=== PATIENT | female | born 1955 | race African-American/Black ===

== ENCOUNTER 2018-05-16 13:28 | Emergency (ER) | payer OTHER ==
[2018-05-16 13:37] VITALS: BP 136/75; PULSE 91; RESP 18; TEMP 98.5
--- NOTE | 2018-05-16 14:09 | ED ---
General Adult HPI - General Chief complaint: Recheck/Abnormal Lab/Rx Stated complaint: Weakness Time Seen by Provider: 05/16/18 13:39 Source: patient, RN notes reviewed, old records reviewed Mode of arrival: wheelchair Limitations: no limitations - History of Present Illness Initial comments: Chief complaint and history of present illness this is a 63-year-old black female who is here with a friend. The patient's friend conversion to come in because she noticed that she had a limited number tremor. While in emergency room the patient did demonstrate tremor when asked to hold her hand still. But when distracted and relaxed and she had no tremor. This was during Gen. conversation as well as during the neurological examination the patient's eyes were closed and her arms were extended outward to check for drift. The patient does report that she been the side effects to one of her medications which she' s been on for 2 years, not to do. Is having some tremor. She's also on Klonopin and Zoloft for bipolar disorder and schizophrenia. Patient denies any depression at this time. - Related Data Home Medications Medication Instructions Recorded Confirmed Sertraline [Zoloft] 100 mg PO DAILY 11/21/15 01/14/16 Previous Rx's Medication Instructions Recorded Artificial Tears-Hypromellose 2 drops BOTH EYES Q4HR PRN #1 09/10/15 [Artificial Tear Drops] bottle clonazePAM [KlonoPIN] 0.5 mg PO BID PRN #14 tab 09/10/15 Ibuprofen [Motrin] 600 mg PO Q6HR PRN #30 tab 11/22/15 Atorvastatin [Lipitor] 20 mg PO HS #30 tab 01/21/16 Lurasidone [Latuda] 40 mg PO BID-W/MEALS #60 tab 01/21/16 Montelukast [Singulair] 10 mg PO HS #30 tab 01/21/16 glipiZIDE XL [Glucotrol XL] 2.5 mg PO DAILY #30 tab.er.24 01/21/16 metFORMIN HCL [Glucophage] 500 mg PO BID-W/MEALS #60 tab 01/21/16 Allergies Allergy/AdvReac Type Severity Reaction Status Date / Time adhesive tape Allergy Rash/Hives Verified 05/16/18 13:37 almond oil Allergy Itching Verified 05/16/18 13:37 soy Allergy Nausea Verified 05/16/18 13:37 Sulfa (Sulfonamide Allergy Nausea & Verified 05/16/18 13:37 Antibiotics) Vomiting & Diarrhea black mold Allergy Confusion Uncoded 05/16/18 13:37 Review of Systems ROS Statement: Those systems with pertinent positive or pertinent negative responses have been documented in the HPI. Review of systems. Patient denies any headache no visual acuity changes mild discomfort to her throat which she ascribes to ALLERGIES. No runny nose. No chest pain shortness breath GI/ problems no neuro deficits. All systems are reviewed. Past medical problems significant for non-insulin diabetes mellitus, hyperlipidemia, depression, schizophrenia, enlarged thyroid without treatment. Surgeries none. Family history cancers including breast, leukemia. Patient has ALLERGIES to adhesive tape, almond oil, soy, sulfa drugs and black mold. Patient is a heavy smoker 2 packs per day. He spent over 3 minutes discussing ways to decrease her cigarette consumption. And advised to talk to her family doctor about help in stopping her cigarettes. Patient denies any alcohol use. ROS Other: All systems not noted in ROS Statement are negative. Past Medical History Past Medical History: Diabetes Mellitus, Hyperlipidemia, Skin Disorder Additional Past Medical History / Comment(s): Depression, Pt is unable to state rest of history, keloid removed from R posterior shoulder History of Any Multi-Drug Resistant Organisms: None Reported Additional Past Surgical History / Comment(s): Keloid removed from right shoulder Past Anesthesia/Blood Transfusion Reactions: No Reported Reaction Past Psychological History: Anxiety, Bipolar, Depression, Schizophrenia Smoking Status: Current every day smoker Past Alcohol Use History: None Reported Past Drug Use History: None Reported - Past Family History Mother Family Medical History: Cancer, Diabetes Mellitus Additional Family Medical History / Comment(s): Leukemia. Father History Unknown: Yes General Exam - General Exam Comments Initial Comments: General: The patient is awake and alert, in no distress, and does not appear acutely ill. Here because her friend noticed that she had some shaking. Patient reports she's had shaking on-call for 4 days. Patient read the side effects to one of her medications, what to do. Asians vital signs shows temperature 98.5 pulse 91 respiratory rate 18 pulse ox 90% on room air blood pressure 136/75. Eye: Pupils are equal, round and reactive to light, extra-ocular movements are intact ; there is normal conjunctiva bilaterally. No signs of icterus. Ears, nose, mouth and throat: There are moist mucous membranes and no oral lesions. Tonsils normal, Neck: The neck is supple, there is no tenderness, no anterior cervical lymphadenopathy , no JVD. Normal range of motion of neck. Cardiovascular: There is a regular rate and rhythm. No murmur, rub or gallop is appreciated. Respiratory: Lungs are clear to auscultation, respirations are non-labored, breath sounds are equal. No wheezes, stridor, rales, or rhonchi. Gastrointestinal: Soft, non-distended, non-tender abdomen without masses or organomegaly noted. There is no rebound or guarding present. No CVA tenderness. Bowel sounds are unremarkable. Back: There is no tenderness to palpation in the midline. There is no obvious deformity. No rashes noted. Musculoskeletal: Normal ROM, no tenderness, There is no pedal edema. There is no calf tenderness or swelling. Sensation intact. Pulses equal bilaterally 2+. Neurological: CN II-XII intact, There are no obvious motor or sensory deficits. Coordination appears grossly intact. Speech is normal. No focal or lateralizing findings. During the drift test with the patient's eyes closed her arms extended there was no tremor whatsoever. This was pointed out to the patient. Her friend who noticed some tremor at home also agreed that there was no tremor or shaking of her hands or feet. Skin: Skin is warm and dry and no rashes or lesions are noted. Psychiatric: Cooperative, appropriate mood & affect, normal judgment. History of schizophrenia and bipolar disorder. Limitations: no limitations Course Vital Signs 05/16/18 13:33 Temperature 98.5 F Pulse Rate 91 Respiratory 18 Rate Blood Pressure 136/75 O2 Sat by Pulse 98 Oximetry Medical Decision Making - Medical Decision Making Medical decision making; the patient is here because of some tremor. Which is not evident on the patient is distracted, resting or during her neurological examination. The patient is on several medications including Klonopin, Zoloft and left to do. The patient was advised to follow-up with her family physician tomorrow for review of her medications and possible side effects. Advised not to stop her medications cold turkey. Disposition Clinical Impression: Medication side effect Disposition: HOME SELF-CARE Condition: Fair Additional Instructions: : Follow-up with your prescribing physician for those medications discussed in detail while in emergency room. Continue with those medications down to have had a consultation. Stop smoking as soon as possible and discuss this with your doctor as well. Return emergency room as needed. Is patient prescribed a controlled substance at d/c from ED?: No Referrals: Burke Thurston MD [Primary Care Provider] - 1-2 days Time of Disposition: 14:09
== END 2018-05-16 14:15 | disposition home or self-care (01) ==
LOC: EC 13:28
DX: R25.1 Tremor, unspecified (principal); T42.4X5A Adverse effect of benzodiazepines, initial encounter; F31.9 Bipolar disorder, unspecified; F20.9 Schizophrenia, unspecified; F41.9 Anxiety disorder, unspecified; F17.200 Nicotine dependence, unspecified, uncomplicated; Z79.899 Other long term (current) drug therapy; Z88.2 Allergy status to sulfonamides; Z91.018 Allergy to other foods; Z91.048 Other nonmedicinal substance allergy status
CPT/HCPCS: 99285

== ENCOUNTER → 2018-08-03 | Outpatient (CLI) | payer MEDICARE, OTHER ==
--- NOTE | 2018-08-04 08:52 | MM ---
Reason for exam: screening (asymptomatic). Last mammogram was performed 3 years and 1 month ago. History: Patient is postmenopausal. Family history of breast cancer in aunt. Physical Findings: A clinical breast exam by your physician is recommended on an annual basis and results should be correlated with mammographic findings. MG 3D Screening Mammo W/Cad Bilateral CC and MLO view(s) were taken. Prior study comparison: June 29, 2015, bilateral MG screening mammo w CAD. February 15, 2013, CAD bilateral diagnostic mammogram. The breast tissue is heterogeneously dense. This may lower the sensitivity of mammography. There is no discrete abnormality. No significant changes when compared with prior studies. ASSESSMENT: Negative, BI-RAD 1 RECOMMENDATION: Routine screening mammogram of both breasts.
== END | disposition home or self-care (01) ==
LOC: RADMAMWWP 08:10
PROVIDERS: ATTEND Internal Medicine
DX: Z12.31 Encounter for screening mammogram for malignant neoplasm of breast (principal)
CPT/HCPCS: 77063; 77067

== ENCOUNTER 2019-03-28 14:32 | Observation (INO) | payer MEDICARE, OTHER ==
[2019-03-28] MEDS ORDERED: diphenhydrAMINE 50 MG/ML 1 ML VIAL IVP STA (15:41)
[2019-03-28] MEDS ORDERED: SODIUM CHLORIDE 0.9% 1,000 ML IV ONE (15:41)
--- NOTE | 2019-03-28 15:47 | ED ---
General Adult HPI - General Chief complaint: Weakness Stated complaint: body feels like its giving out Time Seen by Provider: 03/28/19 15:28 Source: patient Mode of arrival: wheelchair Limitations: no limitations - History of Present Illness Initial comments: Patient is a 64-year-old female presents with a chief complaint of weakness and falls. She states it is been going on for about 3 months. The patient has a history of diabetes, and psychiatric disease for which she was on latuda. the patient states that she was having side effects from that medication so she stopped taking it. she states that the symptoms have gotten worse since that time. she cannot identify an inciting incident, no aggravating or alleviating factors. timing is constant. She states that she is having difficulty now getting up and down her stairs and feels unsafe at home. - Related Data Home Medications Medication Instructions Recorded Confirmed Sertraline [Zoloft] 100 mg PO DAILY 11/21/15 03/28/19 Aspirin [Roane Aspirin EC] 81 mg PO DAILY 03/28/19 03/28/19 Loratadine [Claritin] 10 mg PO DAILY 03/28/19 03/28/19 QUEtiapine XR [SEROquel XR] 200 mg PO HS 03/28/19 03/28/19 Topiramate [Topamax] 50 mg PO BID 03/28/19 03/28/19 Trihexyphenidyl HCl 5 mg PO BID 03/28/19 03/28/19 Previous Rx's Medication Instructions Recorded Artificial Tears-Hypromellose 2 drops BOTH EYES Q4HR PRN #1 09/10/15 [Artificial Tear Drops] bottle Atorvastatin [Lipitor] 20 mg PO HS #30 tab 01/21/16 Montelukast [Singulair] 10 mg PO HS #30 tab 01/21/16 glipiZIDE XL [Glucotrol XL] 2.5 mg PO DAILY #30 tab.er.24 01/21/16 metFORMIN HCL [Glucophage] 500 mg PO BID-W/MEALS #60 tab 01/21/16 Allergies Allergy/AdvReac Type Severity Reaction Status Date / Time adhesive tape Allergy Rash/Hives Verified 03/28/19 14:56 almond oil Allergy Itching Verified 03/28/19 14:56 soy Allergy Nausea Verified 03/28/19 14:56 Sulfa (Sulfonamide Allergy Nausea & Verified 03/28/19 14:56 Antibiotics) Vomiting & Diarrhea black mold Allergy Confusion Uncoded 03/28/19 14:56 Review of Systems ROS Statement: Those systems with pertinent positive or pertinent negative responses have been documented in the HPI. ROS Other: All systems not noted in ROS Statement are negative. Neurological: Reports: weakness, other (abnormal movements. ) Past Medical History Past Medical History: Diabetes Mellitus, Hyperlipidemia, Skin Disorder Additional Past Medical History / Comment(s): Depression, Pt is unable to state rest of history, keloid removed from R posterior shoulder History of Any Multi-Drug Resistant Organisms: None Reported Past Surgical History: No Surgical Hx Reported Additional Past Surgical History / Comment(s): Keloid removed from right shoulder Past Anesthesia/Blood Transfusion Reactions: No Reported Reaction Past Psychological History: Anxiety, Bipolar, Depression, Schizophrenia Smoking Status: Current every day smoker Past Alcohol Use History: None Reported Past Drug Use History: None Reported - Past Family History Mother Family Medical History: Cancer, Diabetes Mellitus Additional Family Medical History / Comment(s): Leukemia. Father History Unknown: Yes General Exam Limitations: no limitations General appearance: alert, in no apparent distress Head exam: Present: atraumatic, normocephalic Eye exam: Present: normal appearance ENT exam: Present: normal exam Neck exam: Present: normal inspection Respiratory exam: Present: normal lung sounds bilaterally. Absent: respiratory distress, wheezes Cardiovascular Exam: Present: regular rate, normal rhythm GI/Abdominal exam: Present: soft. Absent: distended, tenderness Rectal exam: Present: deferred Extremities exam: Present: normal inspection Back exam: Present: normal inspection Neurological exam: Present: alert, oriented X3, other (patient has tardive dyskenesia with lip smacking, face twitching and upper extremity jerking. ) Psychiatric exam: Present: normal affect, normal mood Skin exam: Present: warm, dry, intact Course Vital Signs 03/28/19 14:52 Temperature 98.2 F Pulse Rate 111 H Respiratory 18 Rate Blood Pressure 125/78 O2 Sat by Pulse 100 Oximetry Medical Decision Making - Medical Decision Making Patient is a 64-year-old female presents with chief complaint weakness and falls. On initial evaluation, vitals stable, patient is in no acute distress. On exam, patient has moderate to severe tardive dyskinesia. Patient reevaluated patient was going computed tomography scan of the head without contrast. Patient given a dose Benadryl IV. At this time, the patient appears to be pretty debilitated. She feels unsafe at home. Patient will be admitted for further neurologic and psychiatric evaluation. 6:18 PM Lab evaluation of this patient is unremarkable. Computed tomography scan of the head shows no acute process. Case discussed with Dr. Carcamo who excessiveness with consult to neurology. Patient agreeable with care plan. - Lab Data Result diagrams: 03/28/19 15:57 03/28/19 15:57 Lab Results 03/28/19 03/28/19 Range/Units 15:57 15:57 WBC 7.2 (3.8-10.6) k/uL RBC 4.35 (3.80-5.40) m/uL Hgb 12.2 (11.4-16.0) gm/dL Hct 38.3 (34.0-46.0) % MCV 87.9 (80.0-100.0) fL MCH 28.1 (25.0-35.0) pg MCHC 32.0 (31.0-37.0) g/dL RDW 15.2 (11.5-15.5) % Plt Count 293 (150-450) k/uL Neutrophils % 69 % Lymphocytes % 20 % Monocytes % 6 % Eosinophils % 3 % Basophils % 0 % Neutrophils # 5.0 (1.3-7.7) k/uL Lymphocytes # 1.5 (1.0-4.8) k/uL Monocytes # 0.5 (0-1.0) k/uL Eosinophils # 0.2 (0-0.7) k/uL Basophils # 0.0 (0-0.2) k/uL Sodium 141 (137-145) mmol/L Potassium 4.2 (3.5-5.1) mmol/L Chloride 114 H (98-107) mmol/L Carbon Dioxide 19 L (22-30) mmol/L Anion Gap 8 mmol/L BUN 18 H (7-17) mg/dL Creatinine 0.78 (0.52-1.04) mg/dL Est GFR (CKD-EPI)AfAm >90 (>60 ml/min/1.73 sqM) Est GFR (CKD-EPI)NonAf 82 (>60 ml/min/1.73 sqM) Glucose 83 (74-99) mg/dL Calcium 9.5 (8.4-10.2) mg/dL Creatine Kinase 515 H (30-135) U/L Disposition Clinical Impression: Tardive dyskinesia, At high risk for falls Disposition: ADMITTED IP TO THIS HOSP Condition: Good Referrals: Burke Thurston MD [Primary Care Provider] - 1-2 days Decision to Admit Reason: Admit from [facility] - Out of Hospital Transfer - Req. Specs Out of Hospital Transfer - Requested Specifics: Other Non-Acute
[2019-03-28 16:46] LABS: Basophils % (A) 0 %; Eosinophils # (A) 0.2 k/uL (0-0.7); Eosinophils % (A) 3 %; HCT 38.3 % (34.0-46.0); HGB 12.2 gm/dL (11.4-16.0); Lymphocytes # (A) 1.5 k/uL (1.0-4.8); Lymphocytes % (A) 20 %; MCH 28.1 pg (25.0-35.0); MCV 87.9 fL (80.0-100.0); Mean Platelet Volume 6.6; Monocytes # (A) 0.5 k/uL (0-1.0); Monocytes % (A) 6 %; Neutrophils % (A) 69 %; Platelet Count 293 k/uL (150-450); RBC 4.35 m/uL (3.80-5.40); RDW 15.2 % (11.5-15.5); WBC 7.2 k/uL (3.8-10.6)
[2019-03-28 16:47] LABS: Anion Gap 8 mmol/L; Blood Urea Nitrogen 18 mg/dL (7-17); Calcium 9.5 mg/dL (8.4-10.2); Carbon Dioxide 19 mmol/L (22-30); Chloride 114 mmol/L (98-107); Creatine Kinase 515 U/L (30-135); Glucose 83 mg/dL (74-99); Potassium 4.2 mmol/L (3.5-5.1); Sodium 141 mmol/L (137-145)
--- NOTE | 2019-03-28 17:03 | CT ---
EXAMINATION TYPE: CT brain wo con DATE OF EXAM: 03/28/2019 COMPARISON: 05/01/2013 HISTORY: Weakness. CT DLP: 1090.4 mGycm Automated exposure control for dose reduction was used. FINDINGS: Ventricles of normal size. There is no mass effect nor midline shift. There is no sign of intracrania l hemorrhage. The calvarium is intact. There is no evidence of cerebral edema. IMPRESSION: HEAD CT SCAN APPEARS NORMAL FOR AGE. NO SIGNIFICANT CHANGE.
[2019-03-28] MEDS ORDERED: NALOXONE 0.4 MG/ML 1 ML VIAL IV PRN (18:13)
[2019-03-28] MEDS ORDERED: HYDROcodone/APAP 5-325MG 1 EACH TAB PO PRN (20:28)
[2019-03-28] MEDS ORDERED: LORazepam 1 MG TAB PO PRN (20:28)
[2019-03-28 21:39] LABS: Glucose,Whole Blood 109 mg/dL (75-99)
[2019-03-28] MEDS: NICOTINE 14MG/24HR PATCH TRANSDERM SCH (21:39)
[2019-03-28] MEDS: INSULIN ASPART (NovoLOG) 100 UNIT/ML VIAL SQ SCH (21:39)
[2019-03-28] MEDS: MONTELUKAST 10 MG TAB PO SCH (21:39)
[2019-03-28] MEDS: HEPARIN SODIUM,PORCINE 5,000 UNIT/ML 1 ML VIAL SQ SCH (21:39)
--- NOTE | 2019-03-28 22:08 | HP ---
HISTORY AND PHYSICAL CHIEF COMPLAINT: Weakness. HISTORY OF PRESENT ILLNESS: This 64-year-old woman with a past medical history of diabetes, hyperlipidemia, history of depression, history of anxiety, bipolar, schizophrenia, history of nicotine dependence, being followed by Dr. Thurston in the outpatient setting was also taking Latuda from the patient's psychiatrist, Dr. Carreno. The patient apparently complains of weakness and difficulty walking and Latuda was stopped about a month ago, but the weakness actually worsened. Patient also had involuntary movements of the face, grimacing, as well as minimally of the arms also patient. The patient came to [facility] and was admitted for further evaluation and treatment. Patient apparently had multiple falls also. The patient had extensive difficulty in walking without any support at this time. CK was elevated minimally at 515. The patient also complaining of some cough and sputum for some time with some diarrhea which stopped at this time. There is no history of fever, rigors or chills. No history of headache, loss of consciousness, seizures. PAST MEDICAL HISTORY: History of diabetes mellitus, history of hyperlipidemia, history of skin disorder, depression, history of anxiety, bipolar depression, schizophrenia. MEDICATIONS: Prior to admission home medications are: 1. Glucophage 500 mg p.o. b.i.d. with meals. 2. Glucotrol XL 2.5 mg daily. 3. Trihexyphenidyl 5 mg p.o. b.i.d. 4. Topamax 50 mg p.o. b.i.d. 5. Zoloft 100 mg p.o. daily. 6. Seroquel XR 200 mg q.h.s. 7. Singular 10 mg q.h.s. 8. Claritin 10 mg p.o. daily. 9. Lipitor 20 mg q.h.s. 10.Aspirin 81 mg p.o. daily. 11.Artificial Tears 2 drops q.4h p.r.n. ALLERGIES: ADHESIVE TAPES, ALMOND OIL, SOY, SULFA, BLACK MOLD. FAMILY HISTORY: History of cancer, diabetes, leukemia in the family. SOCIAL HISTORY: History of smoking. No history of alcohol intake. Patient smokes 2 packs per day. REVIEW OF SYSTEMS: ENT: Mentioned earlier. CARDIOVASCULAR SYSTEM: No angina or palpitations. RESPIRATORY: As mentioned earlier. GI no nausea or vomiting. GENITOURINARY: No dysuria. NERVOUS SYSTEM: Numbness as mentioned earlier. ALLERGIES/IMMUNOLOGY: No asthma or hayfever. MUSCULOSKELETAL: As mentioned earlier. HEMATOLOGY/ONCOLOGY: No history of anemia. ENDOCRINE: As mentioned earlier. CONSTITUTIONAL: As mentioned earlier. DERMATOLOGY: Negative. RHEUMATOLOGY: Negative. PSYCHIATRY: As mentioned earlier. PHYSICAL EXAMINATION: GENERAL: Alert and oriented x3. VITAL SIGNS: Pulse is 111, blood pressure 120/72, respiration 18, temperature 98.2. Pulse ox 100 percent on room air. HEENT is conjunctivae normal. Oral mucosa moist. The patient dysarthric. NECK is no jugular venous distention. No carotid bruit. No lymph node enlargement. Otherwise HEENT has some involuntary movements of the face with facial grimacing present. No nystagmus noted. CARDIOVASCULAR system: S1, S2 muffled. No S3, no S4. RESPIRATORY: Breath sounds diminished in the bases. A few rhonchi. No crackles. ABDOMEN: Soft, obese, nontender. No mass. LEGS: No edema. No swelling. NERVOUS SYSTEM: Higher functions as mentioned earlier. Moves all 4 limbs. Minimal diffuse weakness noted. Otherwise, no focal weakness noted. The tone is normal. The gait is ataxic. No sensory abnormalities are noted. SKIN: No ulcer, rash or bleeding. JOINTS: No active deforming arthropathy. LABS: CBC within normal limits. Sodium 140, potassium 4.2, CO2 is 19, BUN is 18, 515. ASSESSMENT: 1. Generalized tiredness and weakness possibly to rule out drug-induced myopathy. 2. Possible tardive dyskinesia. 3. Elevated CK with possible mild rhabdomyolysis. 4. Obesity with body mass of 34.5. 5. Diabetes mellitus type 2. 6. Hyperlipidemia. 7. Skin disorder. 8. History of depression. 9. History of keloid formation. 10.Anxiety, bipolar depression, schizophrenia. 11.History of continued ongoing nicotine dependence. RECOMMENDATIONS AND DISCUSSION: In this 64-year-old woman who presented with multiple complex medical issues, we will monitor the patient closely. Continue the current medications, management and symptomatic treatment. We will obtain neurology and Psychiatric evaluations. Monitor CK closely. PT/OT evaluation. The patient is at high risk of falls. I would also recommend possible ECF rehab in case the patient does not improve and not safe enough to be discharged home. Otherwise, we will monitor the patient closely. The patient will require more than 2 nights stay in the hospital to evaluate for possible drug induced myopathy or even polyneuropathy given there are no signs or symptoms in this point. The drug use tardive dyskinesia also a possibility, but however the fact that the symptoms are worsening after stopping Latuda is also . We will continue to monitor. Prognosis guarded. See orders for details. Further recommendations to follow. A copy of dictation being forward to Dr. Thurston who is the primary physician. ZI / FELIXN: [id number] / GEOFFREY
[2019-03-29 05:49] LABS: Appearance,Urine Clear (Clear); Bacteria,Urine Rare /hpf; Bilirubin,Urine Negative (Negative); Blood,Urine Negative (Negative); Color,Urine Yellow; Glucose,Urine (UA) Negative (Negative); Ketones,Urine 1+ (Negative); Leukocyte Esterase,Urine Moderate (Negative); Mucus,Urine Rare /hpf; Nitrite,Urine Negative (Negative); PH, Urine 5.5 (5.0-8.0); Protein,Urine Negative (Negative); RBC,Urine 1 /hpf (0-5); Specific Gravity,Urine 1.021 (1.001-1.035); Squamous Epithelial Cell,Urine 4 /hpf (0-4); Urobilinogen,Urine <2.0 mg/dL (<2.0); WBC,Urine 8 /hpf (0-5)
[2019-03-29 07:08] LABS: Glucose,Whole Blood 98 mg/dL (75-99)
[2019-03-29] MEDS: INSULIN ASPART (NovoLOG) 100 UNIT/ML VIAL SQ SCH ×4 (07:39→20:18)
[2019-03-29] MEDS: PANTOPRAZOLE 40 MG TABLET PO SCH (07:44)
[2019-03-29] MEDS: HEPARIN SODIUM,PORCINE 5,000 UNIT/ML 1 ML VIAL SQ SCH ×2 (07:44→21:13)
[2019-03-29] MEDS: metFORMIN 500 MG TAB PO SCH ×2 (07:44→17:39)
[2019-03-29] MEDS: ASPIRIN 81 MG PO SCH (07:44)
[2019-03-29] MEDS: NICOTINE 14MG/24HR PATCH TRANSDERM SCH (07:45)
[2019-03-29 10:00] LABS: Basophils % (A) 1 %; Eosinophils # (A) 0.1 k/uL (0-0.7); Eosinophils % (A) 3 %; HCT 39.9 % (34.0-46.0); HGB 12.6 gm/dL (11.4-16.0); Lymphocytes # (A) 0.8 k/uL (1.0-4.8); Lymphocytes % (A) 15 %; MCH 28.2 pg (25.0-35.0); MCHC 31.6 g/dL (31.0-37.0); MCV 89.3 fL (80.0-100.0); Mean Platelet Volume 6.1; Monocytes # (A) 0.4 k/uL (0-1.0); Monocytes % (A) 8 %; Neutrophils % (A) 73 %; Platelet Count 298 k/uL (150-450); RBC 4.47 m/uL (3.80-5.40); RDW 15.2 % (11.5-15.5); WBC 5.5 k/uL (3.8-10.6)
[2019-03-29 10:02] LABS: Potassium 4.1 mmol/L (3.5-5.1)
[2019-03-29 10:07] LABS: ALT 41 U/L (9-52); AST 87 U/L (14-36); Albumin 4.2 g/dL (3.5-5.0); Alkaline Phosphatase 62 U/L (38-126); Anion Gap 10 mmol/L; Blood Urea Nitrogen 13 mg/dL (7-17); C Reactive Protein <5.0 mg/L (<10.0); Calcium 9.8 mg/dL (8.4-10.2); Carbon Dioxide 20 mmol/L (22-30); Chloride 111 mmol/L (98-107); Creatine Kinase 696 U/L (30-135); Sodium 141 mmol/L (137-145); Total Bilirubin 0.4 mg/dL (0.2-1.3); Total Protein 6.7 g/dL (6.3-8.2)
[2019-03-29 10:37] LABS: Glucose 49 mg/dL (74-99)
[2019-03-29 10:44] LABS: Glucose,Whole Blood 83 mg/dL (75-99)
--- NOTE | 2019-03-29 11:50 | XR ---
EXAMINATION TYPE: XR chest 1V portable DATE OF EXAM: 03/29/2019 COMPARISON: Prior chest x-ray 02/24/2015 HISTORY: Congestive heart failure, weakness TECHNIQUE: Single frontal view of the chest is obtained. FINDINGS: There is no focal air space opacity, pleural effusion, or pneumothorax seen. The cardiac silhouette size is stable. The osseous structures are intact. IMPRESSION: No acute process.
[2019-03-29 11:53] LABS: Erythrocyte Sedimentation Rate 35 mm/hr (0-20)
--- NOTE | 2019-03-29 12:11 | PN ---
PROGRESS NOTE DATE OF SERVICE: 03/29/2019 This 64-year-old woman who was admitted with generalized tenderness and weakness also had possibly facial tardive dyskinesia also. The patient also complained of severe weakness. The patient is only able to walk with support, even then the unsteady gait is noted. Neurology evaluation in progress. CAT scan of the brain is noted. PAST MEDICAL HISTORY: Reviewed. REVIEW OF SYSTEMS: CARDIOVASCULAR SYSTEM: No angina. RESPIRATORY SYSTEM: As mentioned earlier. GI: No nausea. : Possibly UTI. NERVOUS SYSTEM: As mentioned earlier. MEDICATIONS: Current medications are reviewed and include: 1. Ecorse 5 mg q.6 p.r.n. 2. Aspirin 81 mg b.i.d. 3. Rocephin 1 gram daily. 4. Glucotrol 2.5 daily. 5. Heparin subcu b.i.d. 6. NovoLog scale. 7. Ativan 0.5 q.i.d. p.r.n. 8. Glucophage 500 mg b.i.d. 9. Singulair 10 mg q.h.s. 10.Narcan 0.2 q.2 p.r.n. 11.Habitrol 14. 12.Protonix 40 mg daily. PHYSICAL EXAMINATION: The patient is alert and oriented x3. Pulse 97, blood pressure 149/84, respiration 18, temperature 98.8, pulse ox 99% on room air. Patient is dysarthric. HEENT: Multiple abnormal movements of the eyelids, face. Facial grimacing present. CARDIOVASCULAR: S1, S2 muffled. No S3, no S4. RESPIRATION: Breath sounds diminished at the bases. A few scattered rhonchi. No crackles. ABDOMEN: Soft, obese, nontender. LEGS: No edema, no swelling. NERVOUS SYSTEM: Higher functions as mentioned earlier. Otherwise, moves all 4 limbs. Some abnormal movements, diffuse weakness, proximal muscle weakness. Gait dysfunction present. SKIN: No ulcer, rash or bleeding. LABS: WBC 5.5, hemoglobin 12.6. Sodium ntd_, potassium 4.1, CO2 is 20. Glucose is 49. UA noted. ASSESSMENT: 1. Generalized tiredness and weakness possibly drug induced myopathy. 2. Possible tardive dyskinesia. 3. Possible urinary tract infection. 4. Elevated CK with possible mild rhabdomyolysis. 5. Obesity with body mass index of 34.5. 6. Diabetes mellitus type 2, uncontrolled with hypoglycemia. 7. Hyperlipidemia. 8. Skin disorder. 9. History of depression. 10.History of keloid formation. 11.Anxiety, bipolar depression, schizophrenia. 12.History of continued ongoing nicotine dependence. RECOMMENDATIONS AND DISCUSSION: Recommend to continue current medication and continue monitoring and symptomatic treatment. Otherwise at this time I would initiate broad-spectrum IV antibiotics, obtain the cultures. Otherwise, I will hold the because of the hypoglycemia. Otherwise, I will continue with metformin and Accu-Cheks a.c. and and at bedtime and coverage also. The overall prognosis guarded because of multiple complex medical issues and we will await neurology consultation. PT, OT evaluation. The patient might require possibly ECF rehab also because of the high risk of fall and injury because of the patient's severe unsteadiness and other associated neurological problems at this time. This patient will definitely require more than 2 nights stay in the hospital for further evaluation and treatment of the above-mentioned medical problems to ensure patient's safety. ZI / MAYLIN: [id number] / GEOFFREY
[2019-03-29 12:37] LABS: Glucose,Whole Blood 89 mg/dL (75-99)
--- NOTE | 2019-03-29 14:20 | P.CN ---
Psychiatric Consult - . Consult date: 03/29/19 Consult:: 03/29/19 13:23 schizophrenia Assessment and Plan (1) Schizophrenia Narrative/Plan: Patient is a 64-year-old female presents with a chief complaint of weakness and falls. She states it is been going on for about 3 months. The patient has a history of diabetes, and psychiatric disease for which she was on latuda. the patient states that she was having side effects from that medication so she stopped taking it. she states that the symptoms have gotten worse since that time. she cannot identify an inciting incident, no aggravating or alleviating factors. timing is constant. She states that she is having difficulty now getting up and down her stairs and feels unsafe at home. - Related Data Home Medications Medication Instructions Recorded Confirmed Sertraline [Zoloft] 100 mg PO DAILY 11/21/15 03/28/19 Aspirin [[place] Aspirin EC] 81 mg PO DAILY 03/28/19 03/28/19 Loratadine [Claritin] 10 mg PO DAILY 03/28/19 03/28/19 QUEtiapine XR [SEROquel XR] 200 mg PO HS 03/28/19 03/28/19 Topiramate [Topamax] 50 mg PO BID 03/28/19 03/28/19 Trihexyphenidyl HCl 5 mg PO BID 03/28/19 03/28/19 Previous Rx's Medication Instructions Recorded Artificial Tears-Hypromellose 2 drops BOTH EYES Q4HR PRN #1 09/10/15 [Artificial Tear Drops] bottle Atorvastatin [Lipitor] 20 mg PO HS #30 tab 01/21/16 Montelukast [Singulair] 10 mg PO HS #30 tab 01/21/16 glipiZIDE XL [Glucotrol XL] 2.5 mg PO DAILY #30 tab.er.24 01/21/16 metFORMIN HCL [Glucophage] 500 mg PO BID-W/MEALS #60 tab 01/21/16 Allergies Allergy/AdvReac Type Severity Reaction Status Date / Time adhesive tape Allergy Rash/Hives Verified 03/28/19 14:56 almond oil Allergy Itching Verified 03/28/19 14:56 soy Allergy Nausea Verified 03/28/19 14:56 Sulfa (Sulfonamide Allergy Nausea & Verified 03/28/19 14:56 Antibiotics) Vomiting & Diarrhea black mold Allergy Confusion Uncoded 03/28/19 14:56 PAST PSYCHIATRIC HISTORY: Patient is well known to this mental health unit with multiple prior hospitalizations and the last in 2014. She is followed by [facility]. She complains that she had massive weight gain on some of the medications; but that she has not gained weight with Latuda. She is unable to recall the names of previous medications. FAMILY PSYCHIATRIC HISTORY: There is a history of psychiatric problems reported on the maternal side. PAST MEDICAL HISTORY: Patient is reported to be a type II diabetic. She has asthmatic. HOME MEDICATIONS: Please refer to medication reconciliation report. SUBSTANCE ABUSE HISTORY: Denies. FAMILY CHEMICAL DEPENDENCY HISTORY: Denies. SOCIAL HISTORY: Patient lives in her own home. 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 She is not . She states that she has 2 children. Past Medical History Past Medical History: Diabetes Mellitus, Hyperlipidemia, Skin Disorder Additional Past Medical History / Comment(s): Depression, Pt is unable to state rest of history, keloid removed from R posterior shoulder History of Any Multi-Drug Resistant Organisms: None Reported Past Surgical History: No Surgical Hx Reported Additional Past Surgical History / Comment(s): Keloid removed from right shoulder Past Anesthesia/Blood Transfusion Reactions: No Reported Reaction Past Psychological History: Anxiety, Bipolar, Depression, Schizophrenia Smoking Status: Current every day smoker Past Alcohol Use History: None Reported Past Drug Use History: None Reported - Past Family History Mother Family Medical History: Cancer, Diabetes Mellitus Additional Family Medical History / Comment(s): Leukemia. Father History Unknown: Yes Musculoskeletal Examination - Abnormal/Involuntary Movements: [ tremors, spasm, tics] Strength: [greater than antigravity (greater than/equal to 3/5) in all extremities, weakness:] Muscle Tone: [ dystonia Gait: [ in wheelchair, wide-based] Station: [unsteady, in wheelchair] Mental Status Examination - General Appearance: [ disheveled, casual, appears older than stated age Speech/Language: [ slow, hesitant, halting, monotone, soft,] Attitude/Behavior: [cooperative Mood: [, depressed, anxious, hopelessness Affect: [ flat, blunted constricted] Orientation: [time, person, place situation] Thought Content: [wnl, denies delusions, obsessions, phobias, other] Risk Factors: [Denies suicidal (ideations, plan), and/or Homicidal (ideations, plan), other] Perception: [ with hallucinations (auditory, visual, tactile), other] Thought Processes: [ concrete, circumstantial, tangential] Concentration/Attention Span: [ impaired] [Per observation and interview with the patient] Recent Memory: [wnl Remote Memory: [wnl] [past events, as related history] Intelligence: [below average] [based on history, based on vocabulary, syntax, grammar, and content] Judgement: [Fair] [per patient's behavior/history of present illness] Insight: [There] [understanding severity of illness/history of present illness] Psychiatric impression: Schizoaffective disorder unstable has been off psychiatric meds for several months with noticeable tic and extraparametal motor movement as noted above has her gait is wide-based needing a wheelchair her station is unsteady she has weakness and lower extremity and tremors and her upper extremity with a noticeable tic in her eyes. Psychiatric recommendation: When medically stable transfer to [address] [place] [address] [place] and she is willing to sign a formal voluntary for admission to stabilize her psychiatric medications. I notified the EPS nurse who will help him transition to the psychiatric unit from medical floor. Thank you for the consult Baldemar Grimm D.O. PhD Current Visit: Yes Status: Acute Priority: High Code(s): F20.9 - SCHIZOPHRENIA, UNSPECIFIED SNOMED Code(s): 47352744 Time with Patient: Greater than 30
--- NOTE | 2019-03-29 16:45 | P.CNNES ---
History of Present Illness Consult date: 03/29/19 Reason for Consult: Tardive dyskinesia History of Present Illness: Patient is a 64-year-old female, with psychiatric history, who states that she has been on Latuda the for about 6 years. About 2 months ago, she started noticing shakiness of her hands, some weakness in the legs and difficulty going upstairs. She stopped Latuda about 2 months ago. Patient states that afterwards her condition started getting worse, instead of getting better. She couldn't walk long distance. She felt as if she would fall, started falling into the [place]. It progressed to the point that she couldn't walk from one room to another not able to do stuff. In the last 1 week the symptoms got much worse particularly yesterday, therefore she decided come to the ER. It was also noticed by her friends that she has been having some facial twitching. Patient denies any focal symptoms. Patient has been on Artane 5 mg twice a day, Topamax 50 mg twice a day, sertraline 100 mg daily, Seroquel XR 200 mg at bedtime and Lipitor 20 mg besides her medication for diabetes. Patient's blood test shows normal CBC, ESR 35, normal sodium and potassium, renal functions. Glucose was low 49. AST mildly elevated 87, AST normal 41. CRP normal. CPK elevated 696. UA negative. Her last hemoglobin A1c is 6.2 on 03/26/2017. Patient had a computed tomography scan of head, which appears normal for age. Chest x-ray showed no acute process. Review of Systems Patient has generalized weakness, facial twitches, denies any chest pain sanjeev rtness of breath double vision, dysphagia, numbness tingling or weakness. Denies neck pain, all other review of systems unremarkable, although patient does have some psychiatric issues.. Past Medical History Past Medical History: Diabetes Mellitus, Hyperlipidemia, Skin Disorder Additional Past Medical History / Comment(s): Depression, Pt is unable to state rest of history, keloid removed from R posterior shoulder History of Any Multi-Drug Resistant Organisms: None Reported Past Surgical History: No Surgical Hx Reported Additional Past Surgical History / Comment(s): Keloid removed from right shoulder Past Anesthesia/Blood Transfusion Reactions: No Reported Reaction Past Psychological History: Anxiety, Bipolar, Depression, Schizophrenia Smoking Status: Current every day smoker Past Alcohol Use History: None Reported Past Drug Use History: None Reported - Past Family History Mother Family Medical History: Cancer, Diabetes Mellitus Additional Family Medical History / Comment(s): Leukemia. Father History Unknown: Yes Medications and Allergies Home Medications Medication Instructions Recorded Confirmed Type Artificial Tears-Hypromellose 2 drops BOTH EYES Q4HR PRN #1 09/10/15 03/28/19 Rx [Artificial Tear Drops] bottle Sertraline [Zoloft] 100 mg PO DAILY 11/21/15 03/28/19 History Atorvastatin [Lipitor] 20 mg PO HS #30 tab 01/21/16 03/28/19 Rx Montelukast [Singulair] 10 mg PO HS #30 tab 01/21/16 03/28/19 Rx glipiZIDE XL [Glucotrol XL] 2.5 mg PO DAILY #30 tab.er.24 01/21/16 03/28/19 Rx metFORMIN HCL [Glucophage] 500 mg PO BID-W/MEALS #60 tab 01/21/16 03/28/19 Rx Aspirin [[place] Aspirin EC] 81 mg PO DAILY 03/28/19 03/28/19 History Loratadine [Claritin] 10 mg PO DAILY 03/28/19 03/28/19 History QUEtiapine XR [SEROquel XR] 200 mg PO HS 03/28/19 03/28/19 History Topiramate [Topamax] 50 mg PO BID 03/28/19 03/28/19 History Trihexyphenidyl HCl 5 mg PO BID 03/28/19 03/28/19 History Allergies Allergy/AdvReac Type Severity Reaction Status Date / Time adhesive tape Allergy Rash/Hives Verified 03/28/19 14:56 almond oil Allergy Itching Verified 03/28/19 14:56 soy Allergy Nausea Verified 03/28/19 14:56 Sulfa (Sulfonamide Allergy Nausea & Verified 03/28/19 14:56 Antibiotics) Vomiting & Diarrhea black mold Allergy Confusion Uncoded 03/28/19 14:56 Physical Examination - Vital Signs Vital Signs: Vital Signs Temp Pulse Pulse Pulse Resp BP BP 03/29/19 12:30 99.0 F 89 18 03/29/19 05:29 98.8 F 97 18 03/28/19 20:32 98.0 F 93 18 129/68 05/20/19 19:11 78 18 120/78 BP Pulse Ox 03/29/19 12:30 144/71 98 03/29/19 05:29 149/84 99 03/28/19 20:32 97 03/28/19 19:11 98 Intake and Output 03/29/19 03/29/19 03/29/19 06:59 14:59 22:59 Intake Total 1000 Balance 1000 Intake: Oral 1000 Other: # Voids 3 3 On examination patient is an elderly Afro-Turkish female, in no distress. Her mental status, speech and language functions are normal. On cranial nerve examination her pupils are round and reactive to light, visual guajardo are full, face is symmetric and tongue protrudes the midline. On muscle strength testing there is no pronator drift and the strength is normal in arms and legs distally and proximally. Reflexes are symmetric, 2+ in the upper limbs, 2+ at the knees, 1 at the ankles and plantars downgoing. Tone and bulk of muscles normal. No tremors of the extremities. Patient is having frequent fascial muscular twitches almost like blepharospasm versus hemifacial spasms. However her face would twitch to the left side and then sometimes the right. Apparently the facial twitches were not present, while I was checking for pronator drift with eyes closed, or when she was performing [id number] testing. Results - Laboratory Findings CBC and BMP: 03/29/19 09:25 03/29/19 09:25 Abnormal Lab Findings: Abnormal Labs 03/28/19 03/28/19 03/29/19 15:57 21:37 05:21 Lymphocytes # ESR Chloride 114 H Carbon Dioxide 19 L BUN 18 H Glucose POC Glucose (mg/dL) 109 H AST Creatine Kinase 515 H Urine Ketones 1+ H Ur Leukocyte Esterase Moderate H Urine WBC 8 H Urine Bacteria Rare H Urine Mucus Rare H 03/29/19 03/29/19 09:25 09:25 Lymphocytes # 0.8 L ESR 35 H Chloride 111 H Carbon Dioxide 20 L BUN Glucose 49 L* POC Glucose (mg/dL) AST 87 H Creatine Kinase 696 H Urine Ketones Ur Leukocyte Esterase Urine WBC Urine Bacteria Urine Mucus Assessment and Plan Assessment: * Possible facial tics versus tardive dyskinesia versus blepharospasm * Generalized weakness, with elevated CPK, possible myopathy, unclear etiology. * Psychiatric disorder, schizoaffective disorder. * Diabetes Plan: * Recheck CPK periodically to assess for the trend. Will also check aldolase. * B12 folate, RPR, TSH, free T4 * May need EMG and nerve conduction of the lower extremities, if CPK continues to stay elevated. * Regarding movement disorder, agree with a trial of Cogentin. As the movement disorder started not too long ago, hopefully will resolve soon also. * PT OT evaluate gait. * We will follow clinically.
[2019-03-29 17:00] LABS: Glucose,Whole Blood 123 mg/dL (75-99)
[2019-03-29 20:16] LABS: Glucose,Whole Blood 101 mg/dL (75-99)
[2019-03-29] MEDS: MONTELUKAST 10 MG TAB PO SCH (21:13)
[2019-03-30 07:26] LABS: Glucose,Whole Blood 122 mg/dL (75-99)
[2019-03-30] MEDS: INSULIN ASPART (NovoLOG) 100 UNIT/ML VIAL SQ SCH ×4 (07:26→20:23)
[2019-03-30] MEDS: PANTOPRAZOLE 40 MG TABLET PO SCH (07:27)
[2019-03-30] MEDS: ASPIRIN 81 MG PO SCH (07:27)
[2019-03-30] MEDS: NICOTINE 14MG/24HR PATCH TRANSDERM SCH (07:27)
[2019-03-30] MEDS: HEPARIN SODIUM,PORCINE 5,000 UNIT/ML 1 ML VIAL SQ SCH ×2 (07:27→22:14)
[2019-03-30] MEDS: metFORMIN 500 MG TAB PO SCH ×2 (07:27→17:23)
[2019-03-30 09:32] LABS: Basophils % (A) 1 %; Eosinophils # (A) 0.1 k/uL (0-0.7); Eosinophils % (A) 1 %; HCT 41.1 % (34.0-46.0); HGB 13.1 gm/dL (11.4-16.0); Lymphocytes # (A) 1.3 k/uL (1.0-4.8); Lymphocytes % (A) 23 %; MCH 28.3 pg (25.0-35.0); MCHC 31.8 g/dL (31.0-37.0); MCV 88.9 fL (80.0-100.0); Mean Platelet Volume 6.8; Monocytes # (A) 0.5 k/uL (0-1.0); Monocytes % (A) 9 %; Neutrophils # (A) 3.5 k/uL (1.3-7.7); Neutrophils % (A) 64 %; Platelet Count 300 k/uL (150-450); RBC 4.62 m/uL (3.80-5.40); RDW 15.6 % (11.5-15.5); WBC 5.5 k/uL (3.8-10.6)
[2019-03-30 09:46] LABS: Anion Gap 9 mmol/L; Blood Urea Nitrogen 10 mg/dL (7-17); Calcium 9.7 mg/dL (8.4-10.2); Carbon Dioxide 21 mmol/L (22-30); Chloride 112 mmol/L (98-107); Creatine Kinase 609 U/L (30-135); Glucose 135 mg/dL (74-99); Potassium 4.4 mmol/L (3.5-5.1); Sodium 142 mmol/L (137-145)
[2019-03-30 12:10] LABS: Glucose,Whole Blood 107 mg/dL (75-99)
[2019-03-30 14:12] VITALS: BMI 34.5
--- NOTE | 2019-03-30 16:26 | P.PN ---
Subjective Progress Note Date: 03/30/19 Patient continues to have forceful eye closure, almost looking like blepharospasm. She sometimes have left hemifacial spasm. This has developed into "red eye"on the left side. Her mouth is not much twitching. Patient at present is taking [place] 5/325 as needed, aspirin 81 mg, Rocephin, insulin, Ativan, Glucophage, Singulair and Protonix. Patient's blood test shows normal CBC, Chem-7, CPK 609. ESR 35, CRP normal <5.0, B12 is low at 204, folic acid 9.4, TSH 1.8 which is normal. 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 - Labs CBC & Chem 7: 03/30/19 08:20 03/30/19 08:20 Labs: Abnormal Lab Results - Last 24 Hours (Table) 03/29/19 03/29/19 03/30/19 Range/Units 16:55 20:04 07:22 RDW (11.5-15.5) % Chloride (98-107) mmol/L Carbon Dioxide (22-30) mmol/L Glucose (74-99) mg/dL POC Glucose (mg/dL) 123 H 101 H 122 H (75-99) mg/dL Creatine Kinase (30-135) U/L 03/30/19 03/30/19 03/30/19 Range/Units 08:20 08:20 12:07 RDW 15.6 H (11.5-15.5) % Chloride 112 H (98-107) mmol/L Carbon Dioxide 21 L (22-30) mmol/L Glucose 135 H (74-99) mg/dL POC Glucose (mg/dL) 107 H (75-99) mg/dL Creatine Kinase 609 H (30-135) U/L Microbiology - Last 24 Hours (Table) 03/29/19 05:21 Urine Culture - Final Urine,Voided 03/29/19 10:42 Blood Culture - Preliminary Blood No Growth after 24 hours Assessment and Plan Assessment: * 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 * Psychiatric disorder, schizoaffective disorder. * B12 deficiency with levels 204. * Diabetes Plan: * Repeat CPK today still elevated 609. Continue to check CPK periodically to assess for the trend. Aldolase pending. * B12 low 204, we will start B12 replacement. Folate normal 9.4, RPR nonreac tive, TSH normal 1.8 * May need EMG and nerve conduction of the lower extremities, if CPK continues t o stay elevated. * Regarding movement disorder, patient at present has movement disorder more like blepharospasm. Usually Botox is indicated for blepharospasm/hemifacial spasm. Okay to give a trial of Cogentin. * PT OT evaluate gait. * We will follow clinically.
[2019-03-30] MEDS: CYANOCOBALAMIN 1,000 MCG/ML 1 ML VIAL IM SCH (17:19)
[2019-03-30 17:20] LABS: Glucose,Whole Blood 135 mg/dL (75-99)
[2019-03-30 20:12] LABS: Glucose,Whole Blood 106 mg/dL (75-99)
--- NOTE | 2019-03-30 20:16 | PN ---
PROGRESS NOTE DATE OF SERVICE: 03/30/2019 This 64-year-old woman who was admitted with generalized weakness and tiredness also had possibly low-grade myopathy. The patient also had multiple psychiatric abnormalities and is on multiple psych medications also. The possibility of possible blepharospasm is also being considered. Outpatient evaluation was recommended by Neurology, including EMG. Otherwise, Psychiatry has seen the patient and recommended that she be transferred to [facility] for continued monitoring and adjustments regarding anti-psychotic medications. PHYSICAL EXAMINATION: Alert and oriented x2. Pulse is 86, blood pressure 136/84, respiration 16, temperature 98.7, pulse ox 98% on room air. HEENT: External appearance of nose and ears normal. Oral cavity normal. Oral mucosa moist. NECK: No jugular venous distention. No carotid bruit. No lymph node enlargement. CARDIOVASCULAR SYSTEM: S1, S2 muffled. RESPIRATORY SYSTEM: Breath sounds diminished at the bases. No rhonchi. No crackles. ABDOMEN: Soft, non-tender. LEGS: No edema. No swelling. NERVOUS SYSTEM: Diffusely weak, especially proximal muscles, and abnormal movements as described previously, unchanged. LABS: WBC 5.5, hemoglobin 13.1. CK is 609, glucose 107 and 135. ASSESSMENT: 1. Generalized tiredness and weakness, possibly drug-induced myopathy. 2. Possible tardive dyskinesia or blepharospasm. 3. Possible urinary tract infection. 4. Elevated creatine kinase with possible mild rhabdomyolysis. 5. Obesity with body mass index of 34.5. 6. Diabetes mellitus, type 2, uncontrolled, with hypoglycemia. 7. Hyperlipidemia. 8. History of depression. 9. History of keloid formation. 10.Anxiety, bipolar depression, schizophrenia. 11.History of continued ongoing nicotine dependence. RECOMMENDATIONS AND DISCUSSION: I recommend to continue current management, continue with the monitoring, symptomatic treatment. Otherwise, as mentioned earlier, we will closely follow with Neurology. We will transfer the patient to Psychiatry once the patient is stabilized, probably within the next 24 hours. Guarded prognosis. Further recommendations to follow. MMODL / IJN: [id number] /
[2019-03-30] MEDS ORDERED: BENZTROPINE MESYLATE 1 MG TAB PO SCH (21:00)
[2019-03-30] MEDS: BENZTROPINE MESYLATE 0.5 MG TAB PO SCH (22:14)
[2019-03-30] MEDS: MONTELUKAST 10 MG TAB PO SCH (22:14)
[2019-03-31 07:11] LABS: Glucose,Whole Blood 137 mg/dL (75-99)
[2019-03-31] MEDS: INSULIN ASPART (NovoLOG) 100 UNIT/ML VIAL SQ SCH ×2 (07:21→12:52)
[2019-03-31] MEDS: NICOTINE 14MG/24HR PATCH TRANSDERM SCH (07:39)
[2019-03-31] MEDS: metFORMIN 500 MG TAB PO SCH (07:42)
[2019-03-31] MEDS: HEPARIN SODIUM,PORCINE 5,000 UNIT/ML 1 ML VIAL SQ SCH (07:42)
[2019-03-31] MEDS: ASPIRIN 81 MG PO SCH (07:43)
[2019-03-31] MEDS: PANTOPRAZOLE 40 MG TABLET PO SCH (07:43)
[2019-03-31] MEDS: BENZTROPINE MESYLATE 0.5 MG TAB PO SCH (07:45)
[2019-03-31] MEDS: CYANOCOBALAMIN 1,000 MCG/ML 1 ML VIAL IM SCH (07:45)
[2019-03-31 10:03] LABS: Basophils % (A) 1 %; Eosinophils # (A) 0.1 k/uL (0-0.7); Eosinophils % (A) 2 %; HCT 40.5 % (34.0-46.0); HGB 12.8 gm/dL (11.4-16.0); Lymphocytes # (A) 1.3 k/uL (1.0-4.8); Lymphocytes % (A) 22 %; MCH 28.1 pg (25.0-35.0); MCHC 31.7 g/dL (31.0-37.0); MCV 88.9 fL (80.0-100.0); Mean Platelet Volume 6.1; Monocytes # (A) 0.5 k/uL (0-1.0); Monocytes % (A) 9 %; Neutrophils # (A) 3.6 k/uL (1.3-7.7); Neutrophils % (A) 64 %; Platelet Count 293 k/uL (150-450); RBC 4.56 m/uL (3.80-5.40); RDW 15.2 % (11.5-15.5); WBC 5.7 k/uL (3.8-10.6)
[2019-03-31 10:16] LABS: Anion Gap 10 mmol/L; Blood Urea Nitrogen 10 mg/dL (7-17); Calcium 9.5 mg/dL (8.4-10.2); Carbon Dioxide 19 mmol/L (22-30); Chloride 113 mmol/L (98-107); Creatine Kinase 472 U/L (30-135); Glucose 92 mg/dL (74-99); Potassium 4.1 mmol/L (3.5-5.1); Sodium 142 mmol/L (137-145)
--- NOTE | 2019-03-31 10:43 | P.DS ---
Providers Date of admission: 03/29/19 10:38 Attending physician: Keke Carcamo Consults: 03/28/19 18:15 Consult Physician Routine Consulting Provider: Nina Patterson Consult Reason/Comments: tardive dyskenesia Do you want consulting provider notified?: Yes 03/28/19 20:37 Consult Physician Routine Consulting Provider: Baldemar Grimm Consult Reason/Comments: schizophrenia Do you want consulting provider notified?: Already Contacted Primary care physician: Bertrand Turk [facility] Course: Final diagnosis Generalized tenderness weakness possibly myopathy possibly drug-induced. Possible tardive dyskinesia or blepharospasm UTI present on admission improved Admitted with a creatinine kinase with a possible mild rhabdomyolysis Obesity body mass in this of 34.5 Diabetes mellitus type II uncontrolled with hypoglycemia Hyperlipidemia. History of depression. History of for keloid formation. Anxiety bipolar depression schizophrenia. History of continue ongoing nicotine dependence Discharge disposition. The patient be discharged in a stable condition with guarded prognosis. Total time taken 35 minutes. History of present illness this 64 woman with a past medical history multiple medical was admitted with abnormal movements and weakness falls and multiple other neurological abnormalities. Tardive dyskinesia possible myopathy possible rhabdomyolysis were suspected. Patient was treated conservatively. Patient was also given antibiotics for presumed UTI. Patient proved significantly. All the psych medication is stopped. Neurology saw the patient. Psychiatric also saw the patient. Recommended inpatient psych eval issue for further continuation and the adjustment of the medications. On exam vitals are stable. Cardio S1-S2 normal. Respirator system no rhonchi. abdomen soft nontender nervous system mild weakness. Patient be transferred in a stable condition with guarded prognosis for psych floor. Please refer to medication reconciliation sheet for list of medications. Patient Condition at Discharge: Good Plan - Discharge Summary New Discharge Prescriptions: New LORazepam [Ativan] 0.5 mg PO Q8HR PRN tab PRN Reason: Anxiety Cefuroxime Axetil [Ceftin] 500 mg PO BID 3 Days #6 tab Benztropine Mesylate [Cogentin] 0.5 mg PO BID tab Nicotine 14Mg/24Hr Patch [Habitrol] 1 patch TRANSDERM DAILY patch INSULIN ASPART (NovoLOG) [NovoLOG (formulary)] 0 unit SQ ACHS vial Continue glipiZIDE XL [Glucotrol XL] 2.5 mg PO DAILY #30 tab.er.24 metFORMIN HCL [Glucophage] 500 mg PO BID-W/MEALS #60 tab Montelukast [Singulair] 10 mg PO HS #30 tab Loratadine [Claritin] 10 mg PO DAILY Aspirin [[place]va Aspirin EC] 81 mg PO DAILY Discontinued Artificial Tears-Hypromellose [Artificial Tear Drops] 2 drops BOTH EYES Q4HR PRN #1 bottle PRN Reason: dry eyes Sertraline [Zoloft] 100 mg PO DAILY Atorvastatin [Lipitor] 20 mg PO HS #30 tab QUEtiapine XR [SEROquel XR] 200 mg PO HS Trihexyphenidyl HCl 5 mg PO BID Topiramate [Topamax] 50 mg PO BID Discharge Medication List Montelukast [Singulair] 10 mg PO HS #30 tab 01/21/16 [Rx] glipiZIDE XL [Glucotrol XL] 2.5 mg PO DAILY #30 tab.er.24 01/21/16 [Rx] metFORMIN HCL [Glucophage] 500 mg PO BID-W/MEALS #60 tab 01/21/16 [Rx] Aspirin [Ava Aspirin EC] 81 mg PO DAILY 03/28/19 [History] Loratadine [Claritin] 10 mg PO DAILY 03/28/19 [History] Benztropine Mesylate [Cogentin] 0.5 mg PO BID tab 03/31/19 [Rx] Cefuroxime Axetil [Ceftin] 500 mg PO BID 3 Days #6 tab 03/31/19 [Rx] INSULIN ASPART (NovoLOG) [NovoLOG (formulary)] 0 unit SQ ACHS vial 03/31/19 [Rx] LORazepam [Ativan] 0.5 mg PO Q8HR PRN tab 03/31/19 [Rx] Nicotine 14Mg/24Hr Patch [Habitrol] 1 patch TRANSDERM DAILY patch 03/31/19 [Rx] Follow up Appointment(s)/Referral(s): Burke Thurston MD [Primary Care Provider] - 1-2 days Activity/Diet/Wound Care/Special Instructions: Diet cardiac Activity Limited follow-up Follow-up with the neurologist advised Follow-up with the psychiatrist as advised Medication adjustment for psychiatric medications per psych.
[2019-03-31 11:37] LABS: Glucose,Whole Blood 108 mg/dL (75-99)
[2019-03-31 14:20] VITALS: BP 121/69; PULSE 93; RESP 16; TEMP 98
== END 2019-03-31 15:14 ==
LOC: EC 14:32 → INTOOBSV 18:14 → 4MS4W 18:14 → INTOOBSV 03-29 10:38 → OBSVTOIN 03-29 10:38 → UNDODISIN 03-31 15:14
PROVIDERS: ADMIT Internal Medicine; ATTEND Internal Medicine
DX: R53.1 Weakness (principal); G25.9 Extrapyramidal and movement disorder, unspecified; F95.9 Tic disorder, unspecified; R26.9 Unspecified abnormalities of gait and mobility; N39.0 Urinary tract infection, site not specified; E11.649 Type 2 diabetes mellitus with hypoglycemia without coma; E53.8 Deficiency of other specified B group vitamins; F31.9 Bipolar disorder, unspecified; F25.9 Schizoaffective disorder, unspecified; F41.9 Anxiety disorder, unspecified; R47.1 Dysarthria and anarthria; R74.8 Abnormal levels of other serum enzymes; E78.5 Hyperlipidemia, unspecified; F17.210 Nicotine dependence, cigarettes, uncomplicated; L98.9 Disorder of the skin and subcutaneous tissue, unspecified; E66.9 Obesity, unspecified; Z68.34 Body mass index [BMI] 34.0-34.9, adult; Z79.84 Long term (current) use of oral hypoglycemic drugs; Z79.82 Long term (current) use of aspirin; Z79.899 Other long term (current) drug therapy; Z88.2 Allergy status to sulfonamides; Z91.018 Allergy to other foods; Z91.048 Other nonmedicinal substance allergy status; Z87.2 Personal history of diseases of the skin and subcutaneous tissue; Z91.81 History of falling; Z80.6 Family history of leukemia; Z83.3 Family history of diabetes mellitus; Z91.14 Patient's other noncompliance with medication regimen; Z80.9 Family history of malignant neoplasm, unspecified
CPT/HCPCS: 96365; 96366 ×2; 96372 ×4; 96361; 96375; 99285; 36415; 97116 ×2; 97163; 97535; 97167; 80053; 80048 ×3; 85652; 84443; 82607; 82085; 82550 ×4; 82746; 85025 ×4; 86140; 81001; 87040; 86780; 87086; 87502; 71045; 70450; G0378 ×4; J1200; J3420 ×2; J1644 ×4; J0696 ×3; 96374

== ENCOUNTER 2019-03-31 15:00 | Inpatient (IN) | payer MEDICARE ==
[2019-03-31] MEDS ORDERED: MAG HYDROX/AL HYDROX/SIMETH 30 ML CUP PO PRN (16:02)
[2019-03-31] MEDS ORDERED: MAGNESIUM HYDROXIDE 2,400 MG/10 ML CUP PO PRN (16:02)
[2019-03-31] MEDS ORDERED: ACETAMINOPHEN TAB 325 MG TAB PO PRN (16:02)
[2019-03-31] MEDS ORDERED: LORazepam 0.5 MG TAB PO PRN (16:10)
[2019-03-31 16:18] VITALS: BMI 34.5
[2019-03-31 17:28] LABS: Glucose,Whole Blood 112 mg/dL (75-99)
[2019-03-31] MEDS: INSULIN ASPART (NovoLOG) 100 UNIT/ML VIAL SQ SCH ×2 (17:54→20:29)
[2019-03-31] MEDS: metFORMIN 500 MG TAB PO SCH (17:55)
[2019-03-31 20:17] LABS: Glucose,Whole Blood 119 mg/dL (75-99)
[2019-03-31] MEDS: CEFDINIR 300 MG CAP PO SCH (20:30)
[2019-03-31] MEDS: BENZTROPINE MESYLATE 0.5 MG TAB PO SCH (20:30)
[2019-04-01 06:39] LABS: Glucose,Whole Blood 135 mg/dL (75-99)
[2019-04-01] MEDS: BENZTROPINE MESYLATE 0.5 MG TAB PO SCH (08:57)
[2019-04-01] MEDS: INSULIN ASPART (NovoLOG) 100 UNIT/ML VIAL SQ SCH ×4 (08:58→21:19)
[2019-04-01] MEDS: LORATADINE 10 MG TAB PO SCH (08:58)
[2019-04-01] MEDS: metFORMIN 500 MG TAB PO SCH ×2 (08:58→17:58)
[2019-04-01] MEDS: ASPIRIN 81 MG PO SCH (08:58)
[2019-04-01] MEDS: CEFDINIR 300 MG CAP PO SCH ×2 (08:58→21:20)
[2019-04-01] MEDS: NICOTINE 14MG/24HR PATCH TRANSDERM SCH (09:45)
[2019-04-01 12:27] LABS: Glucose,Whole Blood 91 mg/dL (75-99)
[2019-04-01 13:48] LABS: Basophils % (A) 0 %; Eosinophils # (A) 0.1 k/uL (0-0.7); Eosinophils % (A) 1 %; HCT 42.3 % (34.0-46.0); HGB 13.5 gm/dL (11.4-16.0); Lymphocytes # (A) 1.7 k/uL (1.0-4.8); Lymphocytes % (A) 25 %; MCH 28.1 pg (25.0-35.0); MCHC 31.9 g/dL (31.0-37.0); MCV 88.2 fL (80.0-100.0); Mean Platelet Volume 6.6; Monocytes # (A) 0.7 k/uL (0-1.0); Monocytes % (A) 10 %; Neutrophils # (A) 4.2 k/uL (1.3-7.7); Neutrophils % (A) 61 %; Platelet Count 297 k/uL (150-450); RBC 4.79 m/uL (3.80-5.40); RDW 15.4 % (11.5-15.5); WBC 6.8 k/uL (3.8-10.6)
[2019-04-01 18:09] LABS: Glucose,Whole Blood 101 mg/dL (75-99)
[2019-04-01 19:52] LABS: Folate, Serum 10.4 ng/mL; Iron Saturation 11.2 (12.00-45.00)
[2019-04-01 19:55] LABS: Glucose,Whole Blood 106 mg/dL (75-99)
[2019-04-01] MEDS: BENZTROPINE MESYLATE 1 MG TAB PO SCH (21:22)
--- NOTE | 2019-04-01 23:19 | HP ---
HISTORY AND PHYSICAL DATE OF SERVICE: 04/01/2019. IDENTIFYING DATA: The patient is a 64-year-old female. She lives in her own home. She was admitted in transfer from the medical floor. CHIEF COMPLAINT: The patient had weakness and possible drug-induced myopathy. She has a diagnosis of schizophrenia. HISTORY OF PRESENT ILLNESS: The patient was admitted to the medical floor for weakness and difficulty walking on the . She had been taking Latuda as her primary psychotropic medication. She is followed by Dr. Nguyen. Her Latuda was stopped 3 months ago due to weakness and problems she was having with movement. She said that after the Latuda was stopped her movement problems got progressively worse. She was also noted to have involuntary movements of the face with grimacing. She was seen on the medical floor and consultation by Dr. Grimm who diagnosed schizoaffective disorder order that was unstable and that she was having noticeable tics and extrapyramidal motor movement. The patient has had a number of psychiatric hospitalizations. Her last hospitalization in this facility was January 14, 2016. At that time, she had gone off her medications and developed bizarre behavior, agitation, delusions and homicidal thoughts. She was diagnosed with schizophrenia with acute exacerbation. She was discharged on Latuda 40 mg twice a day, Zoloft 100 mg a day and Klonopin 0.5 mg twice a day. The patient stated that she had been on Latuda for about 5 to 6 years. She said it was working well for her. She noted a history of what she identified as "psychotic breaks." She acknowledged that she would have situations where she would become very delusional. She said much of the time she was not fully aware of what was going on in those episodes. She said her first psychotic break was at age 52, though she also indicated that she had periods of strange and uncontrolled thinking going back to much young younger. She said she did not recall when she was younger that she actually had any psychotic breaks. Her last psychiatric hospitalization was 2 years ago as noted above. She says that she had been worried about side effects relating to Latuda. She said that she had read concerns about movement disorder and that she felt that she was experiencing abnormal movements. As such, she apparently had talked with Dr. Nguyen and there was an agreement to take her off Latuda which occurred about 3 months ago. She said after that, movements got dramatically worse for her. She said more recently she was having problems walking and especially going up stairs. She also acknowledged that she had abnormal facial movements. She also said that she did recognize that she was having in the abnormal tongue movements. She described shaking and tremors, especially in her legs. She said the movements were making it so that she could not go out shopping and doing normal activities. She reports that she has been sleeping fair to poor. She says she wakes frequently at night. She says that it has been a long-term problem for her. She has loss of motivation and energy. She was vague about whether she is having any hallucinations presently. She did not identify any clear flashbacks or posttraumatic issues. She reported no significant problems with panic, though did report anxiety on and off. Current psychotropic medications limited to Cogentin 0.5 mg twice a day and Ativan 0.5 mg p.r.n. When I asked the patient about her mood, she said she was not depressed, though she was just very bothered by the movement she was having. She is admitted for further evaluation. SUBSTANCE USE HISTORY: None reported by patient. MEDICAL HISTORY AND REVIEW OF SYSTEMS: As per medical consultation. FAMILY AND SOCIAL HISTORY: Patient lives at home with her son who is in his mid 30s. Has a daughter in her mid 30s, who lives in the [place] area. 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 She apparently is retired because of disability. MENTAL STATUS EXAM: Patient was in her room sitting in a wheelchair. She gave fair eye contact. It was noted that she had her head somewhat cocked to one side and had her hand up toward her face. She appeared to be blinking her eyes quite in a pronounced manner and fairly persistently she would move her head about. She seemed to put her hand up over her face, in part to not expose her movements. She did less of that as the interview went on. She answered questions with brief responses. Her thoughts were clear, coherent, and goal directed. Her affect was blunted. Her mood quiet. She did not appear to be significantly down or distressed, though distressed relating to her movements. There was no indication of thought disorder. Cognition was clear. She did make an effort to answer formal cognitive questions, though she provided a coherent history with accurate facts. ASSESSMENT: This 64-year-old female is diagnosed with schizophrenia. She has been having significant movement disorder which may meet criteria for tardive dyskinesia. Her history of having some movements on Latuda and then having exacerbation of movements off Latuda would be further suggestive of tardive dyskinesia. She has had recurrent psychotic breaks over the years where she has become very delusional and disorganized in her function, not clear at this time if she is showing psychotic symptoms or mood disorder. Strengths include the patient's apparent understanding of relevant psychiatric issues. Weaknesses include her chronic thought disorder. DIAGNOSIS: 1. Schizophrenia. 2. Movement disorder, rule out tardive dyskinesia versus dystonia. 3. Generalized weakness. 4. Elevated CK with possible mild rhabdomyolysis. 5. Obesity. 6. Diabetes mellitus type 2. 7. Hyperlipidemia. 8. Skin disorder. 9. History of depression. 10.History of keloid formation. 11.Nicotine dependence. RECOMMENDATIONS: Patient will be admitted for comprehensive medical psychiatric and psychosocial evaluation. Will engage the patient in individual and group therapeutic activities. I will continue the patient on Cogentin and increase her dose to 1 mg 3 times a day. The patient may be a candidate for clozapine therapy, both to address her underlying thought disorder as well as possible tardive dyskinesia. We will need to get further input from Dr. Nguyen. We will focus on stabilization and discharge planning. MMJUAN RAMON / MAYLIN: [id number] /
[2019-04-02 06:44] LABS: Glucose,Whole Blood 116 mg/dL (75-99)
[2019-04-02] MEDS: CEFDINIR 300 MG CAP PO SCH ×2 (08:44→22:09)
[2019-04-02] MEDS: ASPIRIN 81 MG PO SCH (08:45)
[2019-04-02] MEDS: metFORMIN 500 MG TAB PO SCH ×2 (08:45→17:43)
[2019-04-02] MEDS: BENZTROPINE MESYLATE 1 MG TAB PO SCH ×3 (08:45→22:37)
[2019-04-02] MEDS: LORATADINE 10 MG TAB PO SCH (08:45)
[2019-04-02] MEDS: INSULIN ASPART (NovoLOG) 100 UNIT/ML VIAL SQ SCH ×4 (09:13→20:11)
[2019-04-02] MEDS: DOCUSATE 100 MG CAP PO SCH (09:14)
[2019-04-02] MEDS: FERROUS SULFATE 325 MG TAB PO SCH (09:14)
[2019-04-02] MEDS: NICOTINE 14MG/24HR PATCH TRANSDERM SCH (09:33)
[2019-04-02 12:18] LABS: Glucose,Whole Blood 45 mg/dL (75-99)
[2019-04-02 12:46] LABS: Glucose,Whole Blood 80 mg/dL (75-99)
[2019-04-02] MEDS ORDERED: cloZAPine 25 MG TAB PO ONE (16:30)
[2019-04-02 17:51] LABS: Glucose,Whole Blood 97 mg/dL (75-99)
[2019-04-02 20:11] LABS: Glucose,Whole Blood 115 mg/dL (75-99)
--- NOTE | 2019-04-02 20:45 | PN ---
PROGRESS NOTE DATE OF SERVICE : 04/02/2019 . CHIEF COMPLAINT: The patient had weakness and possible drug induced myopathy. She has a diagnosis of schizophrenia. INTERVAL HISTORY: The patient has been doing fair. She had a quiet evening last night. She does come out some. She will interact a little with others. Mostly she will wander about the unit some. She slept fairly well last night. Today she has been up. She says she is feeling a little better today compared to yesterday. On the other hand movement gil, she says that her movements are just as pronounced if not a little worse. She says that overall her mood is fairly quiet. She has not noted any problems with hallucinations or difficulties in her thinking. She acknowledges that she has had significant problems with psychotic episodes. She does feel that the medicine she had been on were helpful. When we reviewed the issue of her going off the Latuda, and exactly at what point she was having problems, she was somewhat unclear about details of that. She says that Dr. Carreno was aware that she had some movement issues, though she said she was not clear whether or not he thought she had a specific movement disorder. She does not believe that he actually saw her during the more recent period when she has had a significant progression of issues in this regard. She continues to have weakness in her legs along with tremors and abnormal movements in her face. She tolerates her psychotropic medications. With increasing her Cogentin, she has not noticed any improvement as stated above. MENTAL STATUS: Patient gave fair eye contact. Psychomotor activity was a little restless. She answered questions with brief responses. Her thoughts were clear. Her affect was constricted. Her mood was quiet. She did appear to be significantly distressed. She had a friendly calm manner. There was no indication of thought disorder. ASSESSMENT: I would give a presumptive diagnosis of tardive dyskinesia, which had been apparently presented itself over some months while she was on Latuda. Her movement disorder got significantly worse when she went off Latuda. We do not have information from Dr. Carreno to better clarify details. I discussed treatment options for the patient. At this point, I believe that it would be reasonable to start the patient on Clozapine, which would be the best treatment option for prevention of her recurrent psychosis which has been a persistent problem for her. In addition, clozapine has the best indication for treatment of tardive dyskinesia. Given the limited amount of time she may have on the inpatient unit, I will try to push the dosing to get her up to at least a reasonable dose where we may see some potential improvement in terms of her motor function. I will start the patient today on clozapine 25 mg twice a day. If tolerated, I will look to go up to 25 mg twice a day, 50 mg at bedtime in a divided dose. I would like to continue titrating up through the next few days. On Thursday, we have the opportunity to get a hold of Dr. Carreno and get further historical information as well as his input in regards to issues relating to her movement disorder and addition we can get followup from Neurology. I will order a CBC and CMP. I will continue to focus on stabilization and discharge planning. ZI / MAYLIN: [id number] / MTDD
[2019-04-02] MEDS: MONTELUKAST 10 MG TAB PO SCH (22:09)
[2019-04-02] MEDS: cloZAPine 25 MG TAB PO SCH (22:09)
[2019-04-03 06:02] LABS: Glucose,Whole Blood 129 mg/dL (75-99)
[2019-04-03 07:42] LABS: Basophils % (A) 0 %; Eosinophils % (A) 14 %; HCT 41.3 % (34.0-46.0); HGB 13.2 gm/dL (11.4-16.0); Lymphocytes # (A) 2.2 k/uL (1.0-4.8); Lymphocytes % (A) 32 %; MCH 29.1 pg (25.0-35.0); MCHC 31.9 g/dL (31.0-37.0); MCV 91.1 fL (80.0-100.0); Mean Platelet Volume 6.7; Monocytes # (A) 0.5 k/uL (0-1.0); Monocytes % (A) 7 %; Neutrophils # (A) 3.2 k/uL (1.3-7.7); Neutrophils % (A) 46 %; Platelet Count 300 k/uL (150-450); RBC 4.54 m/uL (3.80-5.40); RDW 15.8 % (11.5-15.5); WBC 6.9 k/uL (3.8-10.6)
[2019-04-03 07:44] LABS: ALT 95 U/L (9-52); AST 104 U/L (14-36); Albumin 4.2 g/dL (3.5-5.0); Alkaline Phosphatase 66 U/L (38-126); Anion Gap 8 mmol/L; Blood Urea Nitrogen 10 mg/dL (7-17); Calcium 9.6 mg/dL (8.4-10.2); Carbon Dioxide 25 mmol/L (22-30); Chloride 110 mmol/L (98-107); Glucose 141 mg/dL (74-99); Potassium 3.6 mmol/L (3.5-5.1); Sodium 143 mmol/L (137-145); Total Bilirubin 0.4 mg/dL (0.2-1.3); Total Protein 6.8 g/dL (6.3-8.2)
[2019-04-03] MEDS: INSULIN ASPART (NovoLOG) 100 UNIT/ML VIAL SQ SCH ×4 (08:28→21:54)
[2019-04-03] MEDS: metFORMIN 500 MG TAB PO SCH ×2 (09:51→17:13)
[2019-04-03] MEDS: CEFDINIR 300 MG CAP PO SCH ×2 (09:51→21:51)
[2019-04-03] MEDS: BENZTROPINE MESYLATE 1 MG TAB PO SCH ×3 (09:51→21:52)
[2019-04-03] MEDS: ASPIRIN 81 MG PO SCH (09:51)
[2019-04-03] MEDS: DOCUSATE 100 MG CAP PO SCH (09:52)
[2019-04-03] MEDS: FERROUS SULFATE 325 MG TAB PO SCH (09:52)
[2019-04-03] MEDS: cloZAPine 25 MG TAB PO SCH ×2 (09:52→21:52)
[2019-04-03] MEDS: LORATADINE 10 MG TAB PO SCH (09:52)
[2019-04-03] MEDS: NICOTINE 14MG/24HR PATCH TRANSDERM SCH (09:58)
[2019-04-03 12:24] LABS: Glucose,Whole Blood 102 mg/dL (75-99)
--- NOTE | 2019-04-03 13:38 | P.CNNES ---
History of Present Illness Consult date: 04/03/19 Reason for Consult: Walking difficulty History of Present Illness: Patient is a 64-year-old female, who has been seen previously in neurology [facility] on 03/29/2019 for tardive dyskinesia versus blepharospasm. Please refer to my consultation note from 03/29/2019 for details. Patient now has been started on Clozaril in order to help with possible tardive dyskinesia. Neurology is consulted this time for muscle weakness, and difficulty walking. Patient is a very good historian. Patient states that in the past 2-3 months, she has developed progressively difficulty with endurance for walking. Initially started with problems walking for long distance as she felt her legs would become spaghetti and will fall. She also had problems with going upstairs. She had difficulty going for shopping and going to different places. As the time is passing, this is getting progressively worse. The leg weakness is appearing with walking for shorter distance. At this time she has difficulty walking from her bed to the bathroom before her legs feels weak and she feels she will fall. 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 Otherwise she can still use her upper extremities without any issues. Denies any numbness or tingling in the arms or legs. Patient has difficulty with standing for prolonged period of time, unless she "locks her knees". Patient does have some low back pain, which is posi tional from use of the hospital bed, but now the different mattress, she feels is better. There is no radiating features to her back pain. Patient does have some frequency of urination but no incontinence. Denies any neck or mid back pain. Patient had a computed tomography scan of head without contrast done on 03/28/2019 which was normal. Patient also had some blood tests which her B12 was low 204 for which she has been started on B12 replacement few days ago. Folic acid is normal 10.4, TSH normal. CK has been persistently elevated and 600-470 range. Her hemoglobin A1c is 6.2 aldolase is normal 5.6. RPR negative. Liver functions are mildly elevated AST 104, ALT 95. Review of Systems Denies any headache, double vision, problem with the vision. Denies speech difficulty, dysphagia. Denies shortness of breath wheezing cough, chest pain. The review of systems unremarkable. Past Medical History Past Medical History: Diabetes Mellitus, Hyperlipidemia, Skin Disorder Additional Past Medical History / Comment(s): Depression, Pt is unable to state rest of history, keloid removed from R posterior shoulder History of Any Multi-Drug Resistant Organisms: None Reported Past Surgical History: No Surgical Hx Reported Additional Past Surgical History / Comment(s): Keloid removed from right shoulder Past Anesthesia/Blood Transfusion Reactions: No Reported Reaction Smoking Status: Current every day smoker - Past Family History Mother Family Medical History: Cancer, Diabetes Mellitus Additional Family Medical History / Comment(s): Leukemia. Father History Unknown: Yes Medications and Allergies Home Medications Medication Instructions Recorded Confirmed Type Montelukast [Singulair] 10 mg PO HS #30 tab 01/21/16 03/31/19 Rx glipiZIDE XL [Glucotrol XL] 2.5 mg PO DAILY #30 tab.er.24 01/21/16 03/31/19 Rx metFORMIN HCL [Glucophage] 500 mg PO BID-W/MEALS #60 tab 01/21/16 03/31/19 Rx Aspirin [Garza Aspirin EC] 81 mg PO DAILY 03/28/19 03/31/19 History Loratadine [Claritin] 10 mg PO DAILY 03/28/19 03/31/19 History Benztropine Mesylate [Cogentin] 0.5 mg PO BID tab 03/31/19 03/31/19 Rx Cefuroxime Axetil [Ceftin] 500 mg PO BID 3 Days #6 tab 03/31/19 03/31/19 Rx INSULIN ASPART (NovoLOG) [NovoLOG 0 unit SQ ACHS vial 03/31/19 03/31/19 Rx (formulary)] LORazepam [Ativan] 0.5 mg PO Q8HR PRN tab 03/31/19 03/31/19 Rx Nicotine 14Mg/24Hr Patch [Habitrol] 1 patch TRANSDERM DAILY patch 03/31/19 03/31/19 Rx Allergies Allergy/AdvReac Type Severity Reaction Status Date / Time adhesive tape Allergy Rash/Hives Verified 03/31/19 17:08 almond oil Allergy Itching Verified 03/31/19 17:08 soy Allergy Nausea Verified 03/31/19 17:08 Sulfa (Sulfonamide Allergy Nausea & Verified 03/31/19 17:08 Antibiotics) Vomiting & Diarrhea black mold Allergy Confusion Uncoded 03/31/19 16:12 Physical Examination - Vital Signs Vital Signs: Vital Signs Temp Pulse Resp BP 04/03/19 06:43 99 F 104 H 18 130/76 04/02/19 22:05 81 155/84 On examination patient is a late middle aged Afro-[place] female, very pleasant, in no acute distress. Patient is alert and awake fully oriented. Speech and language functions are normal. Patient does have mild degree of tardive dyskinesias, with most frequent forceful eye closure almost looks like blepharospasm. Some mouth twitching and puckering was also noticed. No dyskinesias involving her torso or the arms. On cranial nerve examination pupils are round and reacting to light. Visual guajardo are full. Extraocular muscles are intact. Face is symmetric and tongue protrudes at midline. On muscle strength testing the strength appears normal in the arms distally and proximally. Her strength for the FDP is slightly weak for the ring and little fingers of both hands. In the lower limbs, hip flexion is 4+/4, abduction 5-/5-, but the knee extension, knee flexion, hip adduction, ankles and toes are all normal. Reflexes are 2+ in the upper limbs, 2+ at the knees, absent ankles and plantars downgoing. Sensory touch is equal. No ataxia for [id number] testing. Tone and bulk of muscles normal. Patient walks somewhat slow, careful walk. She could walk tandem. She was able to walk on her toes and heels with slight support. Romberg negative. Results - Laboratory Findings CBC and BMP: 04/03/19 07:09 04/03/19 07:09 Abnormal Lab Findings: Abnormal Labs 03/31/19 03/31/19 04/01/19 17:26 20:07 06:38 RDW Eosinophils # Chloride Glucose POC Glucose (mg/dL) 112 H 119 H 135 H Iron Iron Saturation Ferritin AST ALT 04/01/19 04/01/19 04/01/19 13:23 17:47 19:54 RDW Eosinophils # Chloride Glucose POC Glucose (mg/dL) 101 H 106 H Iron 28 L Iron Saturation 11.20 L Ferritin 594.8 H AST ALT 04/02/19 04/02/19 04/02/19 06:43 12:11 20:09 RDW Eosinophils # Chloride Glucose POC Glucose (mg/dL) 116 H 45 L 115 H Iron Iron Saturation Ferritin AST ALT 04/03/19 04/03/19 04/03/19 06:00 07:09 07:09 RDW 15.8 H Eosinophils # 1.0 H Chloride 110 H Glucose 141 H POC Glucose (mg/dL) 129 H Iron Iron Saturation Ferritin AST 104 H ALT 95 H 04/03/19 12:22 RDW Eosinophils # Chloride Glucose POC Glucose (mg/dL) 102 H Iron Iron Saturation Ferritin AST ALT Assessment and Plan Assessment: * 64-year-old female with progressive difficulty walking for longer distance, going stairs, progressively worsening for the past 2-3 months. Examination shows some proximal muscle weakness in the lower limbs. Her CPK is elevated. Rule out inclusion body myositis, spinal stenosis. * Elevated liver enzymes * Tardive dyskinesias * Psychiatric disorder * Diabetes, fairly well controlled Plan: * Repeat CPK, we will check acetylcholine receptor antibodies. * Patient's liver functions are elevated. We will check GGT, which if elevated indicates AST and ALT oriented from liver, otherwise muscles would be the source of elevated ALT/AST. * Suggest MRI of the thoracic and lumbar spines. * EMG of right upper and lower extremities to evaluate for neuropathy/radiculopa thy/myelopathy. * If above tests does not provide any definitive answers, then patient will need left quadriceps muscle biopsy. * I would suggest not to inject (B12) or puncture into the left quadriceps in case biopsy is indicated (to avoid a false positive results related to needle myopathy). * Regarding tardive dyskinesia, patient has been started on Clozaril, and patient feels slightly better. If symptoms persist, then Ingrezza could be considered.
[2019-04-03] MEDS ORDERED: cloZAPine 25 MG TAB PO ONE (14:00)
[2019-04-03 14:43] LABS: Creatine Kinase 346 U/L (30-135); GGT 65 U/L (12-43)
[2019-04-03 17:21] LABS: Glucose,Whole Blood 116 mg/dL (75-99)
[2019-04-03 20:18] LABS: Glucose,Whole Blood 132 mg/dL (75-99)
[2019-04-03] MEDS: MONTELUKAST 10 MG TAB PO SCH (21:52)
[2019-04-04 06:52] LABS: Glucose,Whole Blood 135 mg/dL (75-99)
[2019-04-04] MEDS: INSULIN ASPART (NovoLOG) 100 UNIT/ML VIAL SQ SCH ×4 (08:13→20:08)
[2019-04-04] MEDS: metFORMIN 500 MG TAB PO SCH (08:15)
[2019-04-04] MEDS: BENZTROPINE MESYLATE 1 MG TAB PO SCH ×3 (08:59→20:08)
[2019-04-04] MEDS: LORATADINE 10 MG TAB PO SCH (08:59)
[2019-04-04] MEDS: cloZAPine 25 MG TAB PO SCH (08:59)
[2019-04-04] MEDS: FERROUS SULFATE 325 MG TAB PO SCH (09:00)
[2019-04-04] MEDS: NICOTINE 14MG/24HR PATCH TRANSDERM SCH (09:00)
[2019-04-04] MEDS: ASPIRIN 81 MG PO SCH (09:00)
[2019-04-04] MEDS: DOCUSATE 100 MG CAP PO SCH (09:00)
[2019-04-04] MEDS ORDERED: SENNOSIDES 8.6 MG TAB PO PRN (09:10)
[2019-04-04 10:16] LABS: Basophils % (A) 0 %; Eosinophils # (A) 0.4 k/uL (0-0.7); Eosinophils % (A) 6 %; HCT 40.9 % (34.0-46.0); Lymphocytes # (A) 1.8 k/uL (1.0-4.8); Lymphocytes % (A) 25 %; MCH 28.6 pg (25.0-35.0); MCHC 31.8 g/dL (31.0-37.0); MCV 89.9 fL (80.0-100.0); Mean Platelet Volume 6.6; Monocytes # (A) 0.3 k/uL (0-1.0); Monocytes % (A) 5 %; Neutrophils # (A) 4.4 k/uL (1.3-7.7); Neutrophils % (A) 63 %; Platelet Count 299 k/uL (150-450); RBC 4.55 m/uL (3.80-5.40); RDW 15.7 % (11.5-15.5)
--- NOTE | 2019-04-04 10:44 | PN ---
PROGRESS NOTE DATE OF SERVICE: 04/03/2019. CHIEF COMPLAINT: The patient had weakness and possible drug-induced myopathy. She has a diagnosis of schizophrenia. INTERVAL HISTORY: The patient has been doing fair. She had a quiet evening last night. She did attend some groups yesterday. She does tend to spend a fair amount of time in her room. She has been out a little bit. She does not interact much with others. She continues to show facial movements and leg weakness. She has not been making an effort at walking. She had a neurology consultation today with Dr. Patterson. She tolerates her psychotropic medications. MENTAL STATUS: Patient gave fair eye contact. Psychomotor activity was slowed. Speech was monotone. She answered questions with 1 or 2 word responses. She does not say a lot. She had a quiet manner. Her affect was somewhat constricted. Her mood reserved. She did not appear to be significantly distressed. There was no indication of thought disorder. Cognition was clear. ASSESSMENT: I will continue the current diagnosis and treatment plan. Patient has tolerated the start up of Clozaril. We will continue to titrate up on Clozaril. I have made an effort to increase her dose more rapidly than the standard titration. The risks of her continued hospitalization and potential relapse to psychosis outweighs risk for seizure. My aim would be to try to get her to at least 150 mg or higher and Clozaril prior to discharge. There would be at least some chance that if she has tardive dyskinesia, she may be showing some signs of improvement in her response to the initiation of Clozaril. I had an extensive discussion with Dr. Patterson, he diagnosed tardive dyskinesia. He continues to evaluate for some additional neurologic issues. He has recommended outpatient followup that the patient likely warrants an EMG, MRI of lumbar spine and further evaluation for [facility]. He does note that she has had an elevated CK and has ordered some additional labs. We will continue to focus on stabilization and discharge planning. MMODL / IJN: [id number] /
--- NOTE | 2019-04-04 10:47 | PN ---
PROGRESS NOTE DATE OF SERVICE: 04/04/2019. CHIEF COMPLAINT: The patient had weakness and possible drug-induced myopathy. She has a diagnosis of schizophrenia. INTERVAL HISTORY: Patient has been doing fair. She had a quiet evening last night. She did not attend groups yesterday. She continues to be fairly withdrawn. Generally, her mood is quiet. She has a calm manner. She does not have specific complaints other than her muscle weakness. She has had no problems with the titration of clozapine. She has labs pending from this morning. She tolerates psychotropic medications. MENTAL STATUS: Patient gave fair eye contact. Psychomotor activity was slowed. Speech was somewhat monotone. She speaks in a soft voice. She does not say much. Her thoughts are clear. Her affect blunted. Her mood quiet. She did herself identify being down or depressed. There was no outward evidence of thought disorder. Cognition was clear. ASSESSMENT: I will continue the current diagnosis and treatment plan. I will increase clozapine 250 mg a day. I will continue her on 50 mg in the morning today. She will receive 100 mg at bedtime. Tomorrow morning she will receive 50 mg. I would look to continue titrating up on clozapine. Ultimately, a target dose would be 300 mg. Whether she reaches that level during her hospitalization remains to be seen and would depend on discharge planning issues. We may see some early indications of improvement from movement disorder if clozapine does have some affect on the potential for her tardive dyskinesia. On the other hand, if she clearly has tardive dyskinesia as part of her movement disorder it still may take weeks to show some additional response to the addition of clozapine. Also it is noted Dr. Patterson has made specific recommendations for outpatient followup. She should be referred for neurology followup as he has indicated. His plan would be to consider obtaining outpatient EMG and MRI of lumbar spine and further evaluation for [facility]. I reviewed issues with the patient relating to clozapine including the reason for the weekly blood work and the long-term issues of having to obtain regular blood work to monitor WBCs. The patient seemed to understand that quite well and asked some insightful questions regarding the treatment plan. We will continue to focus on stabilization and discharge planning. MMJUAN RAMON / FELIXN: [id number] /
[2019-04-04 12:18] LABS: Glucose,Whole Blood 83 mg/dL (75-99)
--- NOTE | 2019-04-04 12:22 | P.CONS ---
History of Present Illness - Reason for Consult Consult date: 04/04/19 Blood per rectum Requesting physician: Baldemar Grimm - Chief Complaint Weakness - History of Present Illness 64-year-old female with a known history of schizophrenia, schizoaffective disorder, hyperlipidemia, diabetes mellitus and recent treatment for possible tardive dyskinesia who presented to the hospital with complaints of weakness. The patient had reported increasing weakness over the prior 2-3 months. During the patient's hospitalization she reported an episode of bright red blood per rectum. She denies any prior episodes of bright red blood per rectum. She reports that he blood was in the toilet around the stool. She denies any melena or change in bowel habits but does report a history of chronic constipation with bowel movements every 7-10 days, but states that this does not bother her. She denies any abdominal pain. She also reported associated dizziness and nausea with no vomiting. She does report a colonoscopy in the past stating that she believes it was approximately 6-7 years ago and normal. Laboratory evaluation has been significant for a WBC 7, hemoglobin 13 stable from 13.2 previously, platelet count 299,000, stool negative for occult blood, total bilirubin 0.4, AST 66, PLT 104, PLT 95 and CK 346. Review of Systems REVIEW OF SYSTEMS: CONSTITUTIONAL: Denies any fevers, chills, weight change but does report fatigue. CARDIOVASCULAR: Denies any chest pain, palpitations high or low blood pressures RESPIRATORY: Denies any shortness of breath, hemoptysis or cough. GENITOURINARY: No dysuria or hematuria. MUSCULOSKELETAL: Reports overall weakness. SKIN: Denies any new rashes or lesions, jaundice or pallor. PSYCHIATRIC: Denies any depression or anxiety. NEUROLOGY: Denies headache, denies any new focal deficits. EARS/NOSE/THROAT: No recent hearing change, congestion, nasal discharge or sore throat. EYES: No pain in eyes, discharge or change in vision. GASTROINTESTINAL: As per HPI. Past Medical History Past Medical History: Diabetes Mellitus, Hyperlipidemia, Skin Disorder Additional Past Medical History / Comment(s): Depression, Pt is unable to state rest of history, keloid removed from R posterior shoulder History of Any Multi-Drug Resistant Organisms: None Reported Past Surgical History: No Surgical Hx Reported Additional Past Surgical History / Comment(s): Keloid removed from right shoulder Past Anesthesia/Blood Transfusion Reactions: No Reported Reaction Smoking Status: Current every day smoker - Past Family History Mother Family Medical History: Cancer, Diabetes Mellitus Additional Family Medical History / Comment(s): Leukemia. Father History Unknown: Yes Medications and Allergies Home Medications Medication Instructions Recorded Confirmed Type Montelukast [Singulair] 10 mg PO HS #30 tab 01/21/16 03/31/19 Rx glipiZIDE XL [Glucotrol XL] 2.5 mg PO DAILY #30 tab.er.24 01/21/16 03/31/19 Rx metFORMIN HCL [Glucophage] 500 mg PO BID-W/MEALS #60 tab 01/21/16 03/31/19 Rx Aspirin [[place] Aspirin EC] 81 mg PO DAILY 03/28/19 03/31/19 History Loratadine [Claritin] 10 mg PO DAILY 03/28/19 03/31/19 History Benztropine Mesylate [Cogentin] 0.5 mg PO BID tab 03/31/19 03/31/19 Rx Cefuroxime Axetil [Ceftin] 500 mg PO BID 3 Days #6 tab 03/31/19 03/31/19 Rx INSULIN ASPART (NovoLOG) [NovoLOG 0 unit SQ ACHS vial 03/31/19 03/31/19 Rx (formulary)] LORazepam [Ativan] 0.5 mg PO Q8HR PRN tab 03/31/19 03/31/19 Rx Nicotine 14Mg/24Hr Patch [Habitrol] 1 patch TRANSDERM DAILY patch 03/31/19 03/31/19 Rx Allergies Allergy/AdvReac Type Severity Reaction Status Date / Time adhesive tape Allergy Rash/Hives Verified 03/31/19 17:08 almond oil Allergy Itching Verified 03/31/19 17:08 soy Allergy Nausea Verified 03/31/19 17:08 Sulfa (Sulfonamide Allergy Nausea & Verified 03/31/19 17:08 Antibiotics) Vomiting & Diarrhea black mold Allergy Confusion Uncoded 03/31/19 16:12 Physical Exam Vitals: Vital Signs Temp Pulse Resp BP 04/04/19 06:20 97.5 F L 68 16 153/66 04/03/19 15:35 98.3 F On physical examination, patient appears comfortable in no apparent distress. HEAD: Normocephalic, atraumatic. EYES: No scleral icterus. No conjunctival injection. MOUTH: No lesions, tongue midline. NECK: Trachea midline, no gross abnormalities. CHEST: Clear to auscultation with no wheezing or rhonchi appreciated. HEART: Regular rate and rhythm. ABDOMEN: Soft, obese. Bowel sounds are positive. No organomegaly. No guarding or rigidity. EXTREMITIES: No pedal edema. SKIN: No rashes, no jaundice. NEUROLOGIC: Alert and oriented x3. Mild tardive dyskinesia. No focal deficits. Results CBC & Chem 7: 04/04/19 09:56 04/03/19 07:09 Labs: Abnormal Lab Results - Last 24 Hours (Table) 04/03/19 04/03/19 04/03/19 Range/Units 07:09 12:22 16:58 RDW (11.5-15.5) % POC Glucose (mg/dL) 102 H 116 H (75-99) mg/dL GGT 65 H (12-43) U/L Creatine Kinase 346 H (30-135) U/L 04/03/19 04/04/19 04/04/19 Range/Units 20:16 06:22 09:56 RDW 15.7 H (11.5-15.5) % POC Glucose (mg/dL) 132 H 135 H (75-99) mg/dL GGT (12-43) U/L Creatine Kinase (30-135) U/L Assessment and Plan (1) Blood per rectum Narrative/Plan: 64-year-old pleasant female who presented to hospital with complaints of generalized weakness and is currently receiving treatment in the psychiatric unit who is seen for reports of 1 episode of blood per rectum. The patient reports no prior episodes and was found to have a normal hemoglobin of 13 stable from 13.2 previously with negative stool testing for occult blood. Iron levels were drawn and found to be mildly depressed. She denies any abdominal pain. Per report is that last colonoscopy was approximately 6-7 years ago and negative. Given the findings suspicion is for perirectal disease and possibly hemorrhoids, less likely AVM, fissure, malignancy or other etiology. Current Visit: Yes Status: Acute Code(s): K62.5 - HEMORRHAGE OF ANUS AND RECTUM SNOMED Code(s): 46765359 Plan: Supportive care Okay for diet Discussed the addition of bowel regimen including stool softener with the patient at this time she does not feel there is a problem with her bowel movements and would like to hold off on starting any medications Also offered Anusol for treatment of suspected hemorrhoids but the patient is not interested given she has only had 1 episode with blood per rectum Continue to monitor hemoglobin and hematocrit Patient will need colonoscopy in the outpatient setting for further evaluation which has been discussed with her at length History for allowing us to participate in the care of the patient we will continue to follow
[2019-04-04 17:41] LABS: Glucose,Whole Blood 122 mg/dL (75-99)
[2019-04-04 20:02] LABS: Glucose,Whole Blood 183 mg/dL (75-99)
[2019-04-04] MEDS: MONTELUKAST 10 MG TAB PO SCH (20:08)
[2019-04-04] MEDS: cloZAPine 100 MG TAB PO SCH (20:08)
[2019-04-05 06:21] LABS: Glucose,Whole Blood 141 mg/dL (75-99)
--- NOTE | 2019-04-05 07:22 | P.CONS ---
History of Present Illness - History of Present Illness This is a pleasant 64 years old female with past medical history of diabetes mellitus, hyperlipidemia, depression, schizophrenia. Presents to the psychiatric unit for cardiac dyskinesia and movement disorder, and review of her psychiatric history. Medical team have been consulted for medical management. Patient states she has been difficulty walking for the last 2 months. Currently she is in bed with twitching movement as part of her tardive dyskinesia. Also patient reports there is some fresh blood in the stool, with no change in the color of the stool. No abdominal pain or nausea vomiting. Patient tolerating diet well. No chest pain or dyspnea. Review of Systems CONSTITUTIONAL: No fever, no malaise, no fatigue. HEENT: No recent visual problems or hearing problems. Denied any sore throat. CARDIOVASCULAR: No orthopnea, PND, no palpitations, no syncope. PULMONARY: No shortness of breath, no cough, no hemoptysis. GASTROINTESTINAL: No diarrhea, no nausea, no vomiting, no abdominal pain. Normoactive bowel sounds. NEUROLOGICAL: No headaches, no numbness. HEMATOLOGICAL: Denies any bleeding or petechiae. GENITOURINARY: Denies any burning micturition, frequency, or urgency. MUSCULOSKELETAL/RHEUMATOLOGICAL: Denies any joint pain, swelling ENDOCRINE: Denies any polyuria or polydipsia. Past Medical History Past Medical History: Diabetes Mellitus, Hyperlipidemia, Skin Disorder Additional Past Medical History / Comment(s): Depression, Pt is unable to state rest of history, keloid removed from R posterior shoulder History of Any Multi-Drug Resistant Organisms: None Reported Past Surgical History: No Surgical Hx Reported Additional Past Surgical History / Comment(s): Keloid removed from right shoulder Past Anesthesia/Blood Transfusion Reactions: No Reported Reaction Smoking Status: Current every day smoker - Past Family History Mother Family Medical History: Cancer, Diabetes Mellitus Additional Family Medical History / Comment(s): Leukemia. Father History Unknown: Yes Medications and Allergies Home Medications Medication Instructions Recorded Confirmed Type Montelukast [Singulair] 10 mg PO HS #30 tab 01/21/16 03/31/19 Rx glipiZIDE XL [Glucotrol XL] 2.5 mg PO DAILY #30 tab.er.24 01/21/16 03/31/19 Rx metFORMIN HCL [Glucophage] 500 mg PO BID-W/MEALS #60 tab 01/21/16 03/31/19 Rx Aspirin [[place] Aspirin EC] 81 mg PO DAILY 03/28/19 03/31/19 History Loratadine [Claritin] 10 mg PO DAILY 03/28/19 03/31/19 History Benztropine Mesylate [Cogentin] 0.5 mg PO BID tab 03/31/19 03/31/19 Rx Cefuroxime Axetil [Ceftin] 500 mg PO BID 3 Days #6 tab 03/31/19 03/31/19 Rx INSULIN ASPART (NovoLOG) [NovoLOG 0 unit SQ ACHS vial 03/31/19 03/31/19 Rx (formulary)] LORazepam [Ativan] 0.5 mg PO Q8HR PRN tab 03/31/19 03/31/19 Rx Nicotine 14Mg/24Hr Patch [Habitrol] 1 patch TRANSDERM DAILY patch 03/31/19 03/31/19 Rx Allergies Allergy/AdvReac Type Severity Reaction Status Date / Time adhesive tape Allergy Rash/Hives Verified 03/31/19 17:08 almond oil Allergy Itching Verified 03/31/19 17:08 soy Allergy Nausea Verified 03/31/19 17:08 Sulfa (Sulfonamide Allergy Nausea & Verified 03/31/19 17:08 Antibiotics) Vomiting & Diarrhea black mold Allergy Confusion Uncoded 03/31/19 16:12 Physical Exam Vitals: Vital Signs Temp Pulse Resp BP 04/01/19 07:21 99.1 F 94 16 139/64 03/31/19 16:09 97.6 F 102 H 18 147/78 03/31/19 15:41 97.6 F 102 H 18 147/78 Intake and Output 03/31/19 04/01/19 04/01/19 22:59 06:59 14:59 Other: Weight 97.069 kg GENERAL: The patient is alert and oriented x3, not in any acute distress. Well developed, well nourished. HEENT: Pupils are round and equally reacting to light. EOMI. No scleral icterus. No conjunctival pallor. Normocephalic, atraumatic. No pharyngeal erythema. No thyromegaly. CARDIOVASCULAR: S1 and S2 present. No murmurs, rubs, or gallops. PULMONARY: Chest is clear to auscultation, no wheezing or crackles. ABDOMEN: Soft, nontender, nondistended, normoactive bowel sounds. No palpable organomegaly. MUSCULOSKELETAL: No joint swelling or deformity. EXTREMITIES: No cyanosis, clubbing, or pedal edema. -NEUROLOGICAL: Gross neurological examination did not reveal any focal deficits. Patient has generalized weakness, just started that dyskinesia and she has difficulty ambulating SKIN: No rashes. Results CBC & Chem 7: 04/04/19 09:56 04/03/19 07:09 Labs: Abnormal Lab Results - Last 24 Hours (Table) 03/31/19 03/31/19 04/01/19 Range/Units 17:26 20:07 06:38 POC Glucose (mg/dL) 112 H 119 H 135 H (75-99) mg/dL Assessment and Plan Plan: This is a pleasant 64 years old female who was admitted to the psychiatric [facility] for tardive dyskinesia and movement disorder. Psychiatric management as per [facility] psych team. Patient already been evaluated by neurologist, we'll ask for consult from the same neurologist. Also patient reports just some blood in her stool, we'll do anemia workup and if any concerning call GI consult. Continue with DVT and GI prophylaxis. No heparin for DVT prophylaxis and review of her bleeding disorder as this more than benefits. Thank you for consulting us
[2019-04-05] MEDS: LORATADINE 10 MG TAB PO SCH (09:16)
[2019-04-05] MEDS: DOCUSATE 100 MG CAP PO SCH (09:17)
[2019-04-05] MEDS: cloZAPine 25 MG TAB PO SCH (09:17)
[2019-04-05] MEDS: metFORMIN 500 MG TAB PO SCH (09:17)
[2019-04-05] MEDS: ASPIRIN 81 MG PO SCH (09:17)
[2019-04-05] MEDS: BENZTROPINE MESYLATE 1 MG TAB PO SCH ×2 (09:17→21:01)
[2019-04-05] MEDS: INSULIN ASPART (NovoLOG) 100 UNIT/ML VIAL SQ SCH ×4 (09:18→21:00)
[2019-04-05] MEDS: NICOTINE 14MG/24HR PATCH TRANSDERM SCH (09:18)
[2019-04-05] MEDS: FERROUS SULFATE 325 MG TAB PO SCH (09:18)
[2019-04-05] MEDS ORDERED: ALPRAZolam 0.5 MG TAB PO STA (10:15)
[2019-04-05 12:40] LABS: Glucose,Whole Blood 83 mg/dL (75-99)
--- NOTE | 2019-04-05 13:42 | P.PN ---
Subjective Progress Note Date: 04/05/19 Principal diagnosis: Schizoaffective disorder, dystonia versus tardive dyskinesia, generalized weakness, elevated CK with possible mild rhabdomyolysis, obesity, diabetes type 2, hyperlipidemia, skin disorder, history of major depressive disorder which may be related more to schizoaffective, keloid formation, nicotine dependence 04/05/2019: Chart reviewed including progress notes and admission note for the last 4 days, discussed in team indicative discussed with nursing staff and interviewed patient. Patient is wheelchair-bound and states that she cannot walk she is unsteady when she stands up. She admits to being depressed and auditory hallucinations she denies any suicidal or homicidal ideation at the current time. Objective - Vital Signs Vital signs: Vital Signs Temp 97.8 F 04/05/19 01:17 Pulse 113 H 04/05/19 01:17 Resp 16 04/05/19 01:17 BP 128/62 04/05/19 01:17 Pulse Ox - Labs CBC & Chem 7: 04/04/19 09:56 04/03/19 07:09 Labs: Abnormal Lab Results - Last 24 Hours (Table) 04/04/19 04/04/19 04/05/19 Range/Units 17:27 19:48 06:02 POC Glucose (mg/dL) 122 H 183 H 141 H (75-99) mg/dL Assessment and Plan (1) Schizoaffective disorder Narrative/Plan: Patient is a 64-year-old female presents with a chief complaint of weakness and falls. She states it is been going on for about 3 months. The patient has a history of diabetes, and psychiatric disease for which she was on latuda. the patient states that she was having side effects from that medication so she stopped taking it. she states that the symptoms have gotten worse since that time. she cannot identify an inciting incident, no aggravating or alleviating factors. timing is constant. She states that she is having difficulty now getting up and down her stairs and feels unsafe at home. - Related Data Home Medications Medication Instructions Recorded Confirmed Sertraline [Zoloft] 100 mg PO DAILY 11/21/15 03/28/19 Aspirin [[place] Aspirin EC] 81 mg PO DAILY 03/28/19 03/28/19 Loratadine [Claritin] 10 mg PO DAILY 03/28/19 03/28/19 QUEtiapine XR [SEROquel XR] 200 mg PO HS 03/28/19 03/28/19 Topiramate [Topamax] 50 mg PO BID 03/28/19 03/28/19 Trihexyphenidyl HCl 5 mg PO BID 03/28/19 03/28/19 Previous Rx's Medication Instructions Recorded Artificial Tears-Hypromellose 2 drops BOTH EYES Q4HR PRN #1 09/10/15 [Artificial Tear Drops] bottle Atorvastatin [Lipitor] 20 mg PO HS #30 tab 01/21/16 Montelukast [Singulair] 10 mg PO HS #30 tab 01/21/16 glipiZIDE XL [Glucotrol XL] 2.5 mg PO DAILY #30 tab.er.24 01/21/16 metFORMIN HCL [Glucophage] 500 mg PO BID-W/MEALS #60 tab 01/21/16 Allergies Allergy/AdvReac Type Severity Reaction Status Date / Time adhesive tape Allergy Rash/Hives Verified 03/28/19 14:56 almond oil Allergy Itching Verified 03/28/19 14:56 soy Allergy Nausea Verified 03/28/19 14:56 Sulfa (Sulfonamide Allergy Nausea & Verified 03/28/19 14:56 Antibiotics) Vomiting & Diarrhea black mold Allergy Confusion Uncoded 03/28/19 14:56 PAST PSYCHIATRIC HISTORY: Patient is well known to this mental health unit with multiple prior hospitalizations and the last in 2014. She is followed by [facility]. She complains that she had massive weight gain on some of the medications; but that she has not gained weight with Latuda. She is unable to recall the names of previous medications. FAMILY PSYCHIATRIC HISTORY: There is a history of psychiatric problems reported on the maternal side. PAST MEDICAL HISTORY: Patient is reported to be a type II diabetic. She has asthmatic. HOME MEDICATIONS: Please refer to medication reconciliation report. SUBSTANCE ABUSE HISTORY: Denies. FAMILY CHEMICAL DEPENDENCY HISTORY: Denies. SOCIAL HISTORY: Patient lives in her own home. 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 She is not . She states that she has 2 children. Past Medical History Past Medical History: Diabetes Mellitus, Hyperlipidemia, Skin Disorder Additional Past Medical History / Comment(s): Depression, Pt is unable to state rest of history, keloid removed from R posterior shoulder History of Any Multi-Drug Resistant Organisms: None Reported Past Surgical History: No Surgical Hx Reported Additional Past Surgical History / Comment(s): Keloid removed from right shoulder Past Anesthesia/Blood Transfusion Reactions: No Reported Reaction Past Psychological History: Anxiety, Bipolar, Depression, Schizophrenia Smoking Status: Current every day smoker Past Alcohol Use History: None Reported Past Drug Use History: None Reported - Past Family History Mother Family Medical History: Cancer, Diabetes Mellitus Additional Family Medical History / Comment(s): Leukemia. Father History Unknown: Yes Musculoskeletal Examination - Abnormal/Involuntary Movements: [ tremors, spasm, tics] Strength: [greater than antigravity (greater than/equal to 3/5) in all extremit ies, weakness:] Muscle Tone: [ dystonia Gait: [ in wheelchair, wide-based] Station: [unsteady, in wheelchair] Mental Status Examination - General Appearance: [ disheveled, casual, appears older than stated age Speech/Language: [ slow, hesitant, halting, monotone, soft,] Attitude/Behavior: [cooperative Mood: [, depressed, anxious, hopelessness Affect: [ flat, blunted constricted] Orientation: [time, person, place situation] Thought Content: [wnl, denies delusions, obsessions, phobias, other] Risk Factors: [Denies suicidal (ideations, plan), and/or Homicidal (ideations, plan), other] Perception: [ with hallucinations (auditory, visual, tactile), other] Thought Processes: [ concrete, circumstantial, tangential] Concentration/Attention Span: [ impaired] [Per observation and interview with the patient] Recent Memory: [wnl Remote Memory: [wnl] [past events, as related history] Intelligence: [below average] [based on history, based on vocabulary, syntax, grammar, and content] Judgement: [Fair] [per patient's behavior/history of present illness] Insight: [There] [understanding severity of illness/history of present illness] Psychiatric impression: Schizoaffective disorder unstable has been off psychiatric meds for several months with noticeable tic and extraparametal motor movement as noted above has her gait is wide-based needing a wheelchair her station is unsteady she has weakness and lower extremity and tremors and her upper extremity with a noticeable tic in her eyes. Plan: She remains on 15 minute checks and usual protocol for the [address] [place] [address] psychiatric unit [facility]. We'll obtain a Clozaril blood level, reviewed the fact that she's not been doing active PT but using a wheelchair encouraged her to use the walker PT follow-up and evaluate her on the unit. Also will start Lamictal 25 mg by mouth daily at bedtime for mood stability. Current Visit: Yes Status: Acute Code(s): F25.9 - SCHIZOAFFECTIVE DISORDER, UNSPECIFIED SNOMED Code(s): 69142432 Time with Patient: Less than 30
[2019-04-05 17:41] LABS: Glucose,Whole Blood 135 mg/dL (75-99)
[2019-04-05 20:12] LABS: Glucose,Whole Blood 161 mg/dL (75-99)
[2019-04-05] MEDS ORDERED: lamoTRIgine 25 MG TAB PO SCH (21:00)
[2019-04-05] MEDS: cloZAPine 100 MG TAB PO SCH (21:01)
[2019-04-05] MEDS: MONTELUKAST 10 MG TAB PO SCH (21:01)
--- NOTE | 2019-04-05 21:38 | P.PN ---
Subjective Progress Note Date: 04/05/19 Patient feels her right leg is getting weaker. She feels as if someone is pushing her from the top of her head downwards when she tries to walk. Objective - Vital Signs Vital signs: Vital Signs Temp 97.8 F 04/05/19 01:17 Pulse 113 H 04/05/19 01:17 Resp 16 04/05/19 01:17 BP 128/62 04/05/19 01:17 Pulse Ox - Exam Patient laying comfortably in the bed. Continues to have some weakness of the hip flexion. - Labs CBC & Chem 7: 04/04/19 09:56 04/03/19 07:09 Labs: Abnormal Lab Results - Last 24 Hours (Table) 04/05/19 04/05/19 04/05/19 Range/Units 06:02 17:33 19:58 POC Glucose (mg/dL) 141 H 135 H 161 H (75-99) mg/dL Assessment and Plan Assessment: * 64-year-old female with progressive difficulty walking for longer distance, going stairs, progressively worsening for the past 2-3 months. Examination shows some proximal muscle weakness in the lower limbs. Her CPK is elevated. Rule out inclusion body myositis, spinal stenosis. * Elevated liver enzymes * Tardive dyskinesias * Psychiatric disorder * Diabetes, fairly well controlled Plan: * Repeat CPK slightly better, but still elevated 346. * Acetylcholine receptor antibodies pending. * Patient's liver functions are elevated. GGTP is elevated 65/43. Gastroenterology on board. * Await MRI of the thoracic and lumbar spines. * EMG of right upper and lower extremities to evaluate for neuropathy/radiculopathy/myopathy. * If above tests does not provide any definitive answers, then patient will need left quadriceps muscle biopsy. * I would suggest not to inject (B12) or puncture into the left quadriceps in case biopsy is indicated (to avoid a false positive results related to needle myopathy). * Regarding tardive dyskinesia, patient has been started on Clozaril, and patient feels slightly better. If symptoms persist, then Ingrezza could be considered.
[2019-04-06 06:25] LABS: Glucose,Whole Blood 149 mg/dL (75-99)
[2019-04-06] MEDS: INSULIN ASPART (NovoLOG) 100 UNIT/ML VIAL SQ SCH ×4 (07:45→20:38)
[2019-04-06] MEDS: ASPIRIN 81 MG PO SCH (08:46)
[2019-04-06] MEDS: cloZAPine 25 MG TAB PO SCH (08:47)
[2019-04-06] MEDS: DOCUSATE 100 MG CAP PO SCH (08:47)
[2019-04-06] MEDS: FERROUS SULFATE 325 MG TAB PO SCH (08:47)
[2019-04-06] MEDS: metFORMIN 500 MG TAB PO SCH (08:47)
[2019-04-06] MEDS: NICOTINE 14MG/24HR PATCH TRANSDERM SCH (08:47)
[2019-04-06] MEDS: BENZTROPINE MESYLATE 1 MG TAB PO SCH ×2 (08:47→21:22)
[2019-04-06] MEDS: LORATADINE 10 MG TAB PO SCH (08:47)
[2019-04-06 12:28] LABS: Basophils % (A) 0 %; Eosinophils # (A) 0.3 k/uL (0-0.7); Eosinophils % (A) 5 %; HCT 41.9 % (34.0-46.0); HGB 13.2 gm/dL (11.4-16.0); Lymphocytes # (A) 2.1 k/uL (1.0-4.8); Lymphocytes % (A) 32 %; MCH 28.7 pg (25.0-35.0); MCHC 31.6 g/dL (31.0-37.0); MCV 90.7 fL (80.0-100.0); Mean Platelet Volume 6.5; Monocytes # (A) 0.5 k/uL (0-1.0); Monocytes % (A) 7 %; Neutrophils # (A) 3.6 k/uL (1.3-7.7); Neutrophils % (A) 56 %; Platelet Count 313 k/uL (150-450); RBC 4.62 m/uL (3.80-5.40); RDW 15.2 % (11.5-15.5); WBC 6.5 k/uL (3.8-10.6)
[2019-04-06 12:48] LABS: Glucose,Whole Blood 93 mg/dL (75-99)
--- NOTE | 2019-04-06 14:17 | P.PN ---
Subjective Progress Note Date: 04/06/19 Principal diagnosis: Schizoaffective disorder, dystonia versus tardive dyskinesia, generalized weakness, elevated CK with possible mild rhabdomyolysis, obesity, diabetes type 2, hyperlipidemia, skin disorder, history of major depressive disorder which may be related more to schizoaffective, keloid formation, nicotine dependence 04/05/2019: Chart reviewed including progress notes and admission note for the last 4 days, discussed in team indicative discussed with nursing staff and interviewed patient. Patient is wheelchair-bound and states that she cannot walk she is unsteady when she stands up. She admits to being depressed and auditory hallucinations she denies any suicidal or homicidal ideation at the current time. 04/06/2019: Chart reviewed, discussed with nursing staff, discussed in treatment team this morning. Patient refuses to get out of her wheelchair and needs follow-up care such as MRI as an outpatient and not to be ordered inpatient. Patient is less psychotic and less delusional now suicidal nor homicidal ideation and depression seems to be stable at the present time. We'll discuss with treatment team tomorrow disposition and discharge. Objective - Vital Signs Vital signs: Vital Signs Temp 98.7 F 04/06/19 08:45 Pulse 109 H 04/06/19 06:12 Resp 18 04/06/19 06:12 BP 135/74 04/06/19 06:12 Pulse Ox 98 04/06/19 06:12 - Labs CBC & Chem 7: 04/06/19 11:56 04/03/19 07:09 Labs: Abnormal Lab Results - Last 24 Hours (Table) 04/05/19 04/05/19 04/06/19 Range/Units 17:33 19:58 06:21 POC Glucose (mg/dL) 135 H 161 H 149 H (75-99) mg/dL Assessment and Plan (1) Schizoaffective disorder Narrative/Plan: Patient is a 64-year-old female presents with a chief complaint of weakness and falls. She states it is been going on for about 3 months. The patient has a history of diabetes, and psychiatric disease for which she was on latuda. the patient states that she was having side effects from that medication so she stop ped taking it. she states that the symptoms have gotten worse since that time. she cannot identify an inciting incident, no aggravating or alleviating factors. timing is constant. She states that she is having difficulty now getting up and down her stairs and feels unsafe at home. - Related Data Home Medications Medication Instructions Recorded Confirmed Sertraline [Zoloft] 100 mg PO DAILY 11/21/15 03/28/19 Aspirin [[place] Aspirin EC] 81 mg PO DAILY 03/28/19 03/28/19 Loratadine [Claritin] 10 mg PO DAILY 03/28/19 03/28/19 QUEtiapine XR [SEROquel XR] 200 mg PO HS 03/28/19 03/28/19 Topiramate [Topamax] 50 mg PO BID 03/28/19 03/28/19 Trihexyphenidyl HCl 5 mg PO BID 03/28/19 03/28/19 Previous Rx's Medication Instructions Recorded Artificial Tears-Hypromellose 2 drops BOTH EYES Q4HR PRN #1 09/10/15 [Artificial Tear Drops] bottle Atorvastatin [Lipitor] 20 mg PO HS #30 tab 01/21/16 Montelukast [Singulair] 10 mg PO HS #30 tab 01/21/16 glipiZIDE XL [Glucotrol XL] 2.5 mg PO DAILY #30 tab.er.24 01/21/16 metFORMIN HCL [Glucophage] 500 mg PO BID-W/MEALS #60 tab 01/21/16 Allergies Allergy/AdvReac Type Severity Reaction Status Date / Time adhesive tape Allergy Rash/Hives Verified 03/28/19 14:56 almond oil Allergy Itching Verified 03/28/19 14:56 soy Allergy Nausea Verified 03/28/19 14:56 Sulfa (Sulfonamide Allergy Nausea & Verified 03/28/19 14:56 Antibiotics) Vomiting & Diarrhea black mold Allergy Confusion Uncoded 03/28/19 14:56 PAST PSYCHIATRIC HISTORY: Patient is well known to this mental health unit with multiple prior hospitalizations and the last in 2014. She is followed by [facility]. She complains that she had massive weight gain on some of the medications; but that she has not gained weight with Latuda. She is unable to recall the names of previous medications. FAMILY PSYCHIATRIC HISTORY: There is a history of psychiatric problems reported on the maternal side. PAST MEDICAL HISTORY: Patient is reported to be a type II diabetic. She has asthmatic. HOME MEDICATIONS: Please refer to medication reconciliation report. SUBSTANCE ABUSE HISTORY: Denies. FAMILY CHEMICAL DEPENDENCY HISTORY: Denies. SOCIAL HISTORY: Patient lives in her own home. 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 She is not . She states that she has 2 children. Past Medical History Past Medical History: Diabetes Mellitus, Hyperlipidemia, Skin Disorder Additional Past Medical History / Comment(s): Depression, Pt is unable to state rest of history, keloid removed from R posterior shoulder History of Any Multi-Drug Resistant Organisms: None Reported Past Surgical History: No Surgical Hx Reported Additional Past Surgical History / Comment(s): Keloid removed from right sanjeev ulder Past Anesthesia/Blood Transfusion Reactions: No Reported Reaction Past Psychological History: Anxiety, Bipolar, Depression, Schizophrenia Smoking Status: Current every day smoker Past Alcohol Use History: None Reported Past Drug Use History: None Reported - Past Family History Mother Family Medical History: Cancer, Diabetes Mellitus Additional Family Medical History / Comment(s): Leukemia. Father History Unknown: Yes Musculoskeletal Examination - Abnormal/Involuntary Movements: [ tremors, spasm, tics] Strength: [greater than antigravity (greater than/equal to 3/5) in all extremities, weakness:] Muscle Tone: [ dystonia Gait: [ in wheelchair, wide-based] Station: [unsteady, in wheelchair] Mental Status Examination - General Appearance: [ disheveled, casual, appears older than stated age Speech/Language: [ slow, hesitant, halting, monotone, soft,] Attitude/Behavior: [cooperative Mood: [, depressed, anxious, hopelessness Affect: [ flat, blunted constricted] Orientation: [time, person, place situation] Thought Content: [wnl, denies delusions, obsessions, phobias, other] Risk Factors: [Denies suicidal (ideations, plan), and/or Homicidal (ideations, plan), other] Perception: [ with hallucinations (auditory, visual, tactile), other] Thought Processes: [ concrete, circumstantial, tangential] Concentration/Attention Span: [ impaired] [Per observation and interview with the patient] Recent Memory: [wnl Remote Memory: [wnl] [past events, as related history] Intelligence: [below average] [based on history, based on vocabulary, syntax, grammar, and content] Judgement: [Fair] [per patient's behavior/history of present illness] Insight: [There] [understanding severity of illness/history of present illness] Psychiatric impression: Schizoaffective disorder unstable has been off psychia tric meds for several months with noticeable tic and extraparametal motor movement as noted above has her gait is wide-based needing a wheelchair her station is unsteady she has weakness and lower extremity and tremors and her upper extremity with a noticeable tic in her eyes. Plan: She remains on 15 minute checks and usual [facility]. We'll obtain a Clozaril blood level, reviewed the fact that she's not been doing active PT but using a wheelchair encouraged her to use the walker PT follow-up and evaluate her on the unit. Also will start Lamictal 25 mg by mouth daily at bedtime for mood stability. 04/06/2019: She remains on 15 minute checks and usual protocol for 3 [facility]. Awaiting Clozaril blood level and discussed in detail benefit risk ratio of Clozaril as well as Lamictal. She has no shakes at the current time and the Cogentin has done extremely efficient relieving her EPS. Consideration of outpatient workup for back including MRI and follow-up with neurologist. Current Visit: Yes Status: Acute Priority: Medium Code(s): F25.9 - SCHIZOAFFECTIVE DISORDER, UNSPECIFIED SNOMED Code(s): 87445645 Time with Patient: Less than 30
[2019-04-06 17:39] LABS: Glucose,Whole Blood 134 mg/dL (75-99)
[2019-04-06 20:21] LABS: Glucose,Whole Blood 213 mg/dL (75-99)
[2019-04-06] MEDS ORDERED: lamoTRIgine 25 MG TAB PO SCH (21:00)
[2019-04-06] MEDS: cloZAPine 100 MG TAB PO SCH (21:22)
[2019-04-06] MEDS: MONTELUKAST 10 MG TAB PO SCH (21:22)
--- NOTE | 2019-04-06 21:45 | P.PN ---
Subjective Progress Note Date: 04/06/19 Patient feels her right leg is getting weaker. She feels as if someone is pushing her from the top of her head downwards when she tries to walk. Tardive dyskinesias are not as prominent. Objective - Vital Signs Vital signs: Vital Signs Temp 98.7 F 04/06/19 08:45 Pulse 109 H 04/06/19 06:12 Resp 18 04/06/19 06:12 BP 135/74 04/06/19 06:12 Pulse Ox 98 04/06/19 06:12 - Exam Patient laying comfortably in the bed. Continues to have some weakness of the hip flexion. - Labs CBC & Chem 7: 04/06/19 11:56 04/03/19 07:09 Labs: Abnormal Lab Results - Last 24 Hours (Table) 04/06/19 04/06/19 04/06/19 Range/Units 06:21 17:38 20:09 POC Glucose (mg/dL) 149 H 134 H 213 H (75-99) mg/dL Assessment and Plan Assessment: * 64-year-old female with progressive difficulty walking for longer distance, going stairs, progressively worsening for the past 2-3 months. Examination shows some proximal muscle weakness in the lower limbs. Her CPK is elevated. Rule out inclusion body myositis, spinal stenosis. * Elevated liver enzymes * Tardive dyskinesias * Psychiatric disorder * Diabetes, fairly well controlled Plan: * Repeat CPK slightly better, but still elevated 346. * Acetylcholine receptor antibodies pending. * Patient's liver functions are elevated. GGTP is elevated 65/43. Gastroenterology on board. * Patient cannot have MRI of the thoracic and lumbar spines while as inpatient in the psych unit. * * Patient will need neurological workup, including MRI of the spine and tests as below. Patient can be transferred to inpatient in [facility], but EMG cannot be performed in this hospital. * EMG of right upper and lower extremities to evaluate for neuropathy/radiculopathy/myopathy. * If above tests does not provide any definitive answers, then patient will need left quadriceps muscle biopsy. * I would suggest not to inject (B12) or puncture into the left quadriceps in case biopsy is indicated (to avoid a false positive results related to needle myopathy). * Regarding tardive dyskinesia, patient has been started on Clozaril, and patient feels slightly better. If symptoms persist, then Ingrezza could be considered.
[2019-04-07 06:54] LABS: Glucose,Whole Blood 167 mg/dL (75-99)
[2019-04-07 06:55] VITALS: BP 125/67; PULSE 107; RESP 16; TEMP 98
[2019-04-07] MEDS: metFORMIN 500 MG TAB PO SCH (08:00)
[2019-04-07] MEDS: INSULIN ASPART (NovoLOG) 100 UNIT/ML VIAL SQ SCH ×3 (08:16→18:02)
[2019-04-07 09:28] LABS: Clozapine (Clozaril) 309 ng/mL (200-700); Norclozapine 85 ng/mL (200-700)
[2019-04-07] MEDS: BENZTROPINE MESYLATE 1 MG TAB PO SCH (09:31)
[2019-04-07] MEDS: ASPIRIN 81 MG PO SCH (09:31)
[2019-04-07] MEDS: cloZAPine 25 MG TAB PO SCH (09:31)
[2019-04-07] MEDS: DOCUSATE 100 MG CAP PO SCH (09:32)
[2019-04-07] MEDS: FERROUS SULFATE 325 MG TAB PO SCH (09:32)
[2019-04-07] MEDS: LORATADINE 10 MG TAB PO SCH (09:32)
[2019-04-07] MEDS: NICOTINE 14MG/24HR PATCH TRANSDERM SCH (09:32)
--- NOTE | 2019-04-07 11:17 | P.DS ---
Providers Date of admission: 03/31/19 15:35 Expected date of discharge: 04/07/19 Attending physician: Baldemar Grimm DO Consults: 03/31/19 16:02 Consult Physician Routine Consulting Provider: Yoel Price Consult Reason/Comments: H & P and medical care Do you want consulting provider notified?: Yes 04/01/19 13:11 Consult Physician Urgent Consulting Provider: Nina Patterson Consult Reason/Comments: follow up, walking difficutly Do you want consulting provider notified?: Yes Primary care physician: Bertrand Turk - Discharge Diagnosis(es) (1) Schizoaffective disorder Schizoaffective disorder, dystonia versus tardive dyskinesia, generalized weakness, elevated CK with possible mild rhabdomyolysis, obesity, diabetes type 2, hyperlipidemia, skin disorder, history of major depressive disorder which may be related more to schizoaffective, keloid formation, nicotine dependence 04/05/2019: Chart reviewed including progress notes and admission note for the last 4 days, discussed in team indicative discussed with nursing staff and interviewed patient. Patient is wheelchair-bound and states that she cannot walk she is unsteady when she stands up. She admits to being depressed and auditory hallucinations she denies any suicidal or homicidal ideation at the current time. Objective - Vital Signs Vital signs: Vital Signs Temp 97.8 F 04/05/19 01:17 Pulse 113 H 04/05/19 01:17 Resp 16 04/05/19 01:17 BP 128/62 04/05/19 01:17 Pulse Ox - Labs CBC & Chem 7: 04/04/19 09:56 04/03/19 07:09 Labs: Abnormal Lab Results - Last 24 Hours (Table) 04/04/19 04/04/19 04/05/19 Range/Units 17:27 19:48 06:02 POC Glucose (mg/dL) 122 H 183 H 141 H (75-99) mg/dL Assessment and Plan (1) Schizoaffective disorder Narrative/Plan: Patient is a 64-year-old female presents with a chief complaint of weakness and falls. She states it is been going on for about 3 months. The patient has a history of diabetes, and psychiatric disease for which she was on latuda. the patient states that she was having side effects from that medication so she stopped taking it. she states that the symptoms have gotten worse since that time. she cannot identify an inciting incident, no aggravating or alleviating factors. timing is constant. She states that she is having difficulty now getting up and down her stairs and feels unsafe at home. - Related Data Home Medications Medication Instructions Recorded Confirmed Sertraline [Zoloft] 100 mg PO DAILY 11/21/15 03/28/19 Aspirin [[place] Aspirin EC] 81 mg PO DAILY 03/28/19 03/28/19 Loratadine [Claritin] 10 mg PO DAILY 03/28/19 03/28/19 QUEtiapine XR [SEROquel XR] 200 mg PO HS 03/28/19 03/28/19 Topiramate [Topamax] 50 mg PO BID 03/28/19 03/28/19 Trihexyphenidyl HCl 5 mg PO BID 03/28/19 03/28/19 Previous Rx's Medication Instructions Recorded Artificial Tears-Hypromellose 2 drops BOTH EYES Q4HR PRN #1 09/10/15 [Artificial Tear Drops] bottle Atorvastatin [Lipitor] 20 mg PO HS #30 tab 01/21/16 Montelukast [Singulair] 10 mg PO HS #30 tab 01/21/16 glipiZIDE XL [Glucotrol XL] 2.5 mg PO DAILY #30 tab.er.24 01/21/16 metFORMIN HCL [Glucophage] 500 mg PO BID-W/MEALS #60 tab 01/21/16 Allergies Allergy/AdvReac Type Severity Reaction Status Date / Time adhesive tape Allergy Rash/Hives Verified 03/28/19 14:56 almond oil Allergy Itching Verified 03/28/19 14:56 soy Allergy Nausea Verified 03/28/19 14:56 Sulfa (Sulfonamide Allergy Nausea & Verified 03/28/19 14:56 Antibiotics) Vomiting & Diarrhea black mold Allergy Confusion Uncoded 03/28/19 14:56 PAST PSYCHIATRIC HISTORY: Patient is well known to this mental health unit with multiple prior hospitalizations and the last in 2014. She is followed by [facility]. She complains that she had massive weight gain on some of the medications; but that she has not gained weight with Latuda. She is unable to recall the names of previous medications. FAMILY PSYCHIATRIC HISTORY: There is a history of psychiatric problems reported on the maternal side. PAST MEDICAL HISTORY: Patient is reported to be a type II diabetic. She has asthmatic. HOME MEDICATIONS: Please refer to medication reconciliation report. SUBSTANCE ABUSE HISTORY: Denies. FAMILY CHEMICAL DEPENDENCY HISTORY: Denies. SOCIAL HISTORY: Patient lives in her own home. 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 She is not . She states that she has 2 children. Past Medical History Past Medical History: Diabetes Mellitus, Hyperlipidemia, Skin Disorder Additional Past Medical History / Comment(s): Depression, Pt is unable to state rest of history, keloid removed from R posterior shoulder History of Any Multi-Drug Resistant Organisms: None Reported Past Surgical History: No Surgical Hx Reported Additional Past Surgical History / Comment(s): Keloid removed from right shoulder Past Anesthesia/Blood Transfusion Reactions: No Reported Reaction Past Psychological History: Anxiety, Bipolar, Depression, Schizophrenia Smoking Status: Current every day smoker Past Alcohol Use History: None Reported Past Drug Use History: None Reported - Past Family History Mother Family Medical History: Cancer, Diabetes Mellitus Additional Family Medical History / Comment(s): Leukemia. Father History Unknown: Yes Musculoskeletal Examination - Abnormal/Involuntary Movements: [ tremors, spasm, tics] Strength: [greater than antigravity (greater than/equal to 3/5) in all extremities, weakness:] Muscle Tone: [ dystonia Gait: [ in wheelchair, wide-based] Station: [unsteady, in wheelchair] Mental Status Examination - General Appearance: [ disheveled, casual, appears older than stated age Speech/Language: [ slow, hesitant, halting, monotone, soft,] Attitude/Behavior: [cooperative Mood: [, depressed, anxious, hopelessness Affect: [ flat, blunted constricted] Orientation: [time, person, place situation] Thought Content: [wnl, denies delusions, obsessions, phobias, other] Risk Factors: [Denies suicidal (ideations, plan), and/or Homicidal (ideations, plan), other] Perception: [ with hallucinations (auditory, visual, tactile), other] Thought Processes: [ concrete, circumstantial, tangential] Concentration/Attention Span: [ impaired] [Per observation and interview with the patient] Recent Memory: [wnl Remote Memory: [wnl] [past events, as related history] Intelligence: [below average] [based on history, based on vocabulary, syntax, grammar, and content] Judgement: [Fair] [per patient's behavior/history of present illness] Insight: [There] [understanding severity of illness/history of present illness] Psychiatric impression: Schizoaffective disorder Current Visit: Yes Status: Acute Priority: Low Hospital Course: Plan: She remains on 15 minute checks and usual protocol for the 3 [facility]. We'll obtain a Clozaril blood level, reviewed the fact that she's not been doing active PT but using a wheelchair encouraged her to use the walker PT follow-up and evaluate her on the unit. Also will start Lamictal 25 mg by mouth daily at bedtime for mood stability. 04/06/2019: She remains on 15 minute checks and usual protocol for 3 [facility]. Awaiting Clozaril blood level and discussed in detail benefit risk ratio of Clozaril as well as Lamictal. She has no shakes at the current time and the Cogentin has done extremely efficient relieving her EPS. Consideration of outpatient workup for back including MRI and follow-up with neurologist. Mental status examination at the time of discharge 04/07/2019 at 11:16 AM The patient presents alert, pleasant, and cooperative. There calmly seated without any agitated behavior. [She] reports that [her] mood is good. Affect is congruent and euthymic. [She] deny having any suicidal or homicidal ideation intent or plan. [She] denies any auditory or visual hallucinations. There is no evidence of any delusional thought content. [Her] thought process is linear and goal-directed. [Her] speech is fluent and nonpressured. [Her] memory and concentration is grossly intact for the purposes of this session. There is some consideration of further neurological workup that will be done off the unit and were in another hospital. Patient Condition at Discharge: Stable Plan - Discharge Summary Discharge Rx Participant: No New Discharge Prescriptions: New cloZAPine [Clozaril] 50 mg PO DAILY 30 Days #60 tab cloZAPine [Clozaril] 100 mg PO HS 30 Days #30 tab Benztropine Mesylate [Cogentin] 2 mg PO BID 30 Days #60 tab Docusate [Colace] 100 mg PO DAILY cap Ferrous Sulfate [Iron (65 MG Elemental)] 325 mg PO DAILY tab lamoTRIgine [LaMICtal] 50 mg PO 2100 30 Days #60 tab Mag Hydrox/Al Hydrox/Simeth [Maalox] 30 ml PO Q4HR PRN cup PRN Reason: Gi Upset Magnesium Hydroxide [Milk of Magnesia Concentrate] 2,400 mg PO DAILY PRN ml PRN Reason: Constipation Sennosides [Senokot] 8.6 mg PO BID PRN tab PRN Reason: Constipation Montelukast [Singulair] 10 mg PO HS 30 Days #30 tab Continue Montelukast [Singulair] 10 mg PO HS #30 tab Loratadine [Claritin] 10 mg PO DAILY Aspirin [[place] Aspirin EC] 81 mg PO DAILY INSULIN ASPART (NovoLOG) [NovoLOG (formulary)] 0 unit SQ ACHS vial Cefuroxime Axetil [Ceftin] 500 mg PO BID 3 Days #6 tab metFORMIN HCL [Glucophage] 500 mg PO BID-W/MEALS #60 tab glipiZIDE XL [Glucotrol XL] 2.5 mg PO DAILY #30 tab.er.24 Discontinued LORazepam [Ativan] 0.5 mg PO Q8HR PRN tab PRN Reason: Anxiety Benztropine Mesylate [Cogentin] 0.5 mg PO BID tab Nicotine 14Mg/24Hr Patch [Habitrol] 1 patch TRANSDERM DAILY patch Discharge Medication List Montelukast [Singulair] 10 mg PO HS #30 tab 01/21/16 [Rx] Aspirin [[place] Aspirin EC] 81 mg PO DAILY 03/28/19 [History] Loratadine [Claritin] 10 mg PO DAILY 03/28/19 [History] INSULIN ASPART (NovoLOG) [NovoLOG (formulary)] 0 unit SQ ACHS vial 03/31/19 [Rx] Benztropine Mesylate [Cogentin] 2 mg PO BID 30 Days #60 tab 04/07/19 [Rx] Cefuroxime Axetil [Ceftin] 500 mg PO BID 3 Days #6 tab 04/07/19 [Rx] Docusate [Colace] 100 mg PO DAILY cap 04/07/19 [Rx] Ferrous Sulfate [Iron (65 MG Elemental)] 325 mg PO DAILY tab 04/07/19 [Rx] Mag Hydrox/Al Hydrox/Simeth [Maalox] 30 ml PO Q4HR PRN cup 04/07/19 [Rx] Magnesium Hydroxide [Milk of Magnesia Concentrate] 2,400 mg PO DAILY PRN ml 04/07/19 [Rx] Montelukast [Singulair] 10 mg PO HS 30 Days #30 tab 04/07/19 [Rx] Sennosides [Senokot] 8.6 mg PO BID PRN tab 04/07/19 [Rx] cloZAPine [Clozaril] 50 mg PO DAILY 30 Days #60 tab 04/07/19 [Rx] cloZAPine [Clozaril] 100 mg PO HS 30 Days #30 tab 04/07/19 [Rx] glipiZIDE XL [Glucotrol XL] 2.5 mg PO DAILY #30 tab.er.24 04/07/19 [Rx] lamoTRIgine [LaMICtal] 50 mg PO 2100 30 Days #60 tab 04/07/19 [Rx] metFORMIN HCL [Glucophage] 500 mg PO BID-W/MEALS #60 tab 04/07/19 [Rx] Follow up Appointment(s)/Referral(s): Burke Thurston MD [Primary Care Provider] - 1 Week Lisa Acuña MD [STAFF PHYSICIAN] - 1 Week (for need of colonoscopy ) Glenn Hussein DO [STAFF PHYSICIAN] - 1 Week Patient Instructions/Handouts: Depression (DC), Suicide Prevention (DC) Activity/Diet/Wound Care/Special Instructions: Activity and diet as tolerated. Avoid the use of street drugs and alcohol. Take all medications as prescribed. When you are in need of refills on your medications please contact your medical provider and/or outpatient psychiatrist to have this done. Please go to scheduled outpatient appointment for aftercare treatment. If symptoms return or become worse, call the crisis line at and/or go to the nearest emergency room for evaluation. Per Dr. Patterson, neurologist, follow up with neurologist related to MRI of thoracic and lumbar spine. Pt will need neurological workup, including MRI of the spine and test of EMG right upper and lower extremities, if these do not provide definitive answers, pt will need left quadriceps biopsy. . Discharge Disposition: OTHER INSTITUTION NOT DEFINED
[2019-04-07 12:45] LABS: Glucose,Whole Blood 199 mg/dL (75-99)
--- NOTE | 2019-04-07 14:41 | P.PN ---
Subjective This is a pleasant 64 years old female with past medical history of diabetes mellitus, hyperlipidemia, depression, schizophrenia. Presents to the p sychiatric unit for cardiac dyskinesia and movement disorder, and review of her psychiatric history. Medical team have been consulted for medical management. Patient states she has been difficulty walking for the last 2 months. Currently she is in bed with twitching movement as part of her tardive dyskinesia. Also patient reports there is some fresh blood in the stool, with no change in the color of the stool. No abdominal pain or nausea vomiting. Patient tolerating diet well. No chest pain or dyspnea. 03/21/2019 Patient today was on wheelchair. She looks stable, her symptoms of tardive dyskinesia almost disappeared, she denies chest pain or dyspnea. She is fully week. She still have complaining of from weakness in her lower extremity and today she confirmed to me about 3-6 months ago she could walk like normal and she has progressive weakness over the last 2-3 months, she has some pain in her thighs which is mild but with no tenderness. She denies nausea vomiting or change in her urine or bowel habits and no fever. I discussed the case with Dr. Patterson the neurologist and he recommended MRI of the spine, both lumbar and thoracic, also I recommended EMG study and possible muscle biopsy, since this this couldn't be done here in [facility] and the psych unit here, he recommended the patient to be transferred to a tertiary care center. I discussed the case with the neurointensive it Dr. Lock at [facility] and discussed the case with him and he kindly accepted the patient for transfer. Patient is a stable and agreeable to be transferred after I discussed her illnesses and the recommendation and she verbalized understanding and acceptance Also patient with history of bleeding per rectum, her hemoglobin is normal. Possible hemorrhoids however music instructor evaluation was appreciated and they recommended outpatient colonoscopy, I told the patient with this recommendation and she agrees to follow up with GI team. Appointment for GI has been placed in the system in 4 weeks as patient is going now [facility] for her neurological problem. Patient is agreeable with this plan. Risks including but not limited to cancer, abnormal blood vessel are explained for the patient and she verbalized understanding and acceptance Discussed with the staff and bedside nurse Objective - Vital Signs Vital signs: Vital Signs Temp 98 F 04/07/19 06:42 Pulse 107 H 04/07/19 06:42 Resp 16 04/07/19 06:42 BP 125/67 04/07/19 06:42 Pulse Ox 98 04/06/19 06:12 - Exam GENERAL: The patient is alert and oriented x3, not in any acute distress. Well developed, well nourished. HEENT: Pupils are round and equally reacting to light. EOMI. No scleral icterus. No conjunctival pallor. Normocephalic, atraumatic. No pharyngeal erythema. No thyromegaly. CARDIOVASCULAR: S1 and S2 present. No murmurs, rubs, or gallops. PULMONARY: Chest is clear to auscultation, no wheezing or crackles. ABDOMEN: Soft, nontender, nondistended, normoactive bowel sounds. No palpable organomegaly. MUSCULOSKELETAL: No joint swelling or deformity. EXTREMITIES: No cyanosis, clubbing, or pedal edema. -NEUROLOGICAL: Gross neurological examination did not reveal any focal deficits. Weakness in both lower extremities SKIN: No rashes. - Labs CBC & Chem 7: 04/06/19 11:56 04/03/19 07:09 Labs: Abnormal Lab Results - Last 24 Hours (Table) 04/06/19 04/06/19 04/06/19 Range/Units 11:56 17:38 20:09 POC Glucose (mg/dL) 134 H 213 H (75-99) mg/dL Norclozapine 85 L (200-700) ng/mL 04/07/19 04/07/19 Range/Units 06:52 12:33 POC Glucose (mg/dL) 167 H 199 H (75-99) mg/dL Norclozapine (200-700) ng/mL Assessment and Plan Assessment: Weakness in her lower extremities, rule out inclusion body myositis or spinal disease. Bleeding per rectum, GI evaluation recommended outpatient colonoscopy. Hemoglobin is normal upon discharge with no more bleeding Possible Tardive Dyskinesia, resolved Recent history of UTI, not an active fissure Obesity Type 2 diabetes mellitus Hyperlipidemia schizophrenia, patient was in the psych unit for this reasons and she is cleared for discharge by the primary team today History of nicotine dependence Plan: This is a pleasant 64 years old female who is been in the psychiatric unit for his schizophrenia and other psych illnesses. Patient cleared for discharge by the psychiatric team. However the neurologist evaluated the patient and recommended that her to be transferred to a tertiary center for her progressive weakness in her lower extremity, need MRI of the thoracic and lumbar spine, EMG and possible muscle biopsy. I discussed the case with Dr. Lock at [facility] who accepted the patient for transfer. Patient is going to be transferred today Also recommend outpatient colonoscopy and appointment with GI team is made for the patient and she agrees with this plan Patient is agreeable for the transfer and she is a stable to be transferred Thank you for consulting us and please feel free to contact us for any further question.
[2019-04-07 17:33] LABS: Glucose,Whole Blood 148 mg/dL (75-99)
== END 2019-04-07 19:01 | disposition home or self-care (01) | DRG 885 ==
LOC: 3MHU 15:35
PROVIDERS: ADMIT Psychiatry & Neurology Psychiatry; ATTEND Psychiatry & Neurology Psychiatry
DX: F25.9 Schizoaffective disorder, unspecified (principal); M62.82 Rhabdomyolysis; K92.1 Melena; E78.5 Hyperlipidemia, unspecified; G24.01 Drug induced subacute dyskinesia; F41.9 Anxiety disorder, unspecified; F31.9 Bipolar disorder, unspecified; K59.09 Other constipation; J45.909 Unspecified asthma, uncomplicated; L98.9 Disorder of the skin and subcutaneous tissue, unspecified; F17.200 Nicotine dependence, unspecified, uncomplicated; E11.9 Type 2 diabetes mellitus without complications; R25.1 Tremor, unspecified; T43.595A Adverse effect of other antipsychotics and neuroleptics, initial encounter; R26.2 Difficulty in walking, not elsewhere classified; E66.9 Obesity, unspecified; Z68.31 Body mass index [BMI] 31.0-31.9, adult; Z71.6 Tobacco abuse counseling; Z79.82 Long term (current) use of aspirin; Z79.4 Long term (current) use of insulin; Z79.899 Other long term (current) drug therapy; Z77.120 Contact with and (suspected) exposure to mold (toxic); Z99.3 Dependence on wheelchair; Z98.890 Other specified postprocedural states; Z83.3 Family history of diabetes mellitus; Z80.6 Family history of leukemia; Z88.2 Allergy status to sulfonamides; Z91.018 Allergy to other foods; Z91.048 Other nonmedicinal substance allergy status; Z87.440 Personal history of urinary (tract) infections; W06.XXXA Fall from bed, initial encounter
CPT/HCPCS: 80053; 80159; 82272; 82550; 82728; 82746; 82977; 83519; 83540; 83550; 85025